=== PATIENT | female | born 1955 | race Caucasian/White ===

== ENCOUNTER → 2022-01-25 12:40 | Outpatient (CLI) | payer MEDICARE, SELFPAY ==
--- NOTE | 2022-01-25 12:47 | XR_ITS ---
FINAL REPORT TECHNIQUE: Chest PA & Lateral CLINICAL HISTORY: pneumonia FINDINGS: 2 views of the chest were performed. The heart size is normal. The mediastinum is within normal limits. There is dense left lower lobe consolidation. There is a large left pleural effusion. There is patchy airspace opacity at the right lung base. There is no pneumothorax. The bony thorax appears intact. IMPRESSION: Dense left lower lobe consolidation. Large left pleural effusion. Right lower lobe consolidation consistent with bibasilar pneumonia. Reviewed, Interpreted and Dictated by Ramses Gore MD Transcribed by Marquita Vargas Authenticated and [facility]
== END ==
PROVIDERS: PCP Family Medicine; Visit Provider Family Medicine
DX: J18.9 Pneumonia, unspecified organism (principal)
CPT/HCPCS: 71046

== ENCOUNTER 2022-01-27 11:05 | Inpatient (IN) | payer MEDICARE, OTHER, SELFPAY ==
[2022-01-27] VITALS (36 sets, daily range): BP systolic 74–165; BP diastolic 53–107; PULSE 62–88; RESP 20–31; TEMP 34.8–36; O2SAT 73–99; BMI 25.7; BMI 20.8
--- NOTE | 2022-01-27 11:03 | ECG_ITS ---
APPROVED REPORT Exam: Resting ECG HR:80 bpm ECG Measurements Heart Rate [address] 96 P 5 QRSd 89 QRS 52 QT 402 T 63 QTc 437 Conclusion SINUS RHYTHM WITH SHORT CT INTERVAL ST ELEVATION, of uncertain significance UNCONFIRMED REPORT Electronically signed by : Tang Chavira MD 01/29/2022 21:28:15
--- NOTE | 2022-01-27 11:08 | XR_ITS ---
PROCEDURE INFORMATION: Exam: XR Chest Exam date and time: 01/27/2022 11:39 AM Age: 67 years old Clinical indication: Shortness of breath; Additional info: Short of breath TECHNIQUE: Imaging protocol: Radiologic exam of the chest. Views: 1 view. COMPARISON: CR XR CHEST 2V 01/25/2022 12:49 PM FINDINGS: Lungs: Interval complete opacification of the left hemithorax, presumably due to an increase in large pleural effusion. There are increased moderate patchy opacities in the right lung as well; question pneumonia and/or edema. Emphysematous changes. Small/trace right pleural effusion. Postsurgical changes in the right mid/upper lung. Pleural spaces: No pneumothorax. Pleural effusions as above. Heart/Mediastinum: Stable appearance of the cardiac silhouette. Vasculature: Vascular calcifications. Bones/joints: Scoliosis and degenerative changes of the spine. ACDF. Old left rib fractures. IMPRESSION: Interval complete opacification of the left hemithorax, presumably due to an increase in large pleural effusion. There are increased moderate patchy opacities in the right lung as well; question pneumonia and/or edema. Otherwise, as above.
--- NOTE | 2022-01-27 11:09 | PC.NURSE ---
called RT for vbg order
--- NOTE | 2022-01-27 11:10 | HMH.EDGENADL ---
Discharge Plan Disposition Patient Disposition: Admitted As Inpatient Condition: Serious Clinical Impressions Clinical Impression: Pleural effusion, Pneumonia, Acute hypoxemic respiratory failure Discharge ED Provider: Helena Mccabe Adult HPI General Chief complaint: Shortness of Breath/Dyspnea Stated complaint: SOA Time Seen by Provider: 01/27/22 11:08 Mode of Arrival: EMS Source of Information: Patient and EMS History of Present Illness HPI narrative: 67-year-old female presenting to the emergency department with shortness of breath, wheezing. Symptoms started this morning. When she woke up felt generally unwell, difficulty breathing. called EMS for her. When EMS arrived her oxygen saturation was in the 80s on her home 3 L by nasal cannula. They administered a DuoNeb and placed on a nonrebreather. Transported to the emergency department. Patient suffers from COPD, uses inhalers and nebulizer. No recent antibiotics or steroids. She also has dementia. Suffers from chronic pain and takes pain medication. On arrival, she feels short of breath with chest congestion. She denies chest pain, abdominal pain, nausea, vomiting, fevers, chills, headache. Related Data Home Medications Medication Instructions Recorded Confirmed diltiazem HCl 300 mg 300 mg PO DAILY blood pressure 30 04/29/18 01/27/22 capsule,extended release 24 hr days #30 caps fluticasone furoate 200 1 inh inhalation DAILY soa 30 days 04/29/18 01/27/22 mcg-vilanterol 25 mcg/dose #60 ea inhalation powder lisinopril 20 mg tablet 40 mg PO DAILY Hypertension 30 04/29/18 01/27/22 days #120 tabs metformin 500 mg tablet 500 mg PO DAILY dm 30 days #60 tabs 04/29/18 01/27/22 montelukast 10 mg tablet 10 mg PO DAILY allergies 30 days 04/29/18 01/27/22 #30 tabs cholecalciferol (vitamin D3) 50 50 mcg PO DAILY Supplement 12/21/21 01/27/22 mcg (2,000 unit) capsule glipizide 2.5 mg tablet, extended 2.5 mg PO DAILY dm 12/21/21 01/27/22 release 24 hr albuterol sulfate 90 mcg/actuation 1 inh inhalation QID PRN soa 01/27/22 01/27/22 aerosol inhaler (ProAir HFA) aspirin 81 mg tablet,delayed 81 mg PO DAILY heart health 01/27/22 01/27/22 release donepezil 10 mg tablet 10 mg PO DAILY mood 01/27/22 01/27/22 estradiol 0.5 mg tablet 0.5 mg PO DAILY Supplement 01/27/22 01/27/22 ferrous sulfate 325 mg (65 mg 325 mg PO DAILY iron 01/27/22 01/27/22 iron) tablet (FeroSul) fluoxetine 40 mg capsule 40 mg PO DAILY mood 01/27/22 01/27/22 fluticasone fur. 200 mcg-umeclid 1 inh inhalation DAILY Nasal 01/27/22 01/27/22 62.5 mcg-vilant 25 mcg congestion inhalat.powder (Trelegy Ellipta) folic acid 1 mg tablet 1 mg PO DAILY Supplement 01/27/22 01/27/22 magnesium oxide 400 mg (241.3 mg 400 mg PO BID Supplement 01/27/22 01/27/22 magnesium) tablet memantine 5 mg tablet 5 mg PO BID memory 01/27/22 01/27/22 ondansetron HCl 4 mg tablet 4 mg PO TID Nausea & vomiting 01/27/22 01/27/22 potassium chloride 10 mEq 10 meq PO DAILY Supplement 01/27/22 01/27/22 tablet,extended release prednisone 1 mg tablet 5 mg PO DAILY lung 01/27/22 01/27/22 Previous Rx's Medication Instructions Recorded alprazolam 0.25 mg tablet 0.25 mg PO DAILY PRN anxiety #30 01/22/22 tabs Allergies Allergy/AdvReac Type Severity Reaction Status Date / Time CEPHALOSPORIN Allergy Unknown Uncoded 01/25/22 11:11 CODEINE Allergy Unknown I-ITCHING Uncoded 01/25/22 11:11 DOXYCYCLINE Allergy Unknown NA-NAUSEA/V Uncoded 01/25/22 11:11 OMITING FLU VACCINE Allergy Unknown Uncoded 01/25/22 11:11 From ABREVA Allergy Unknown S-BLISTERING Uncoded 01/25/22 11:11 WELTS From ADVAIR DISKUS 100/50 Allergy Unknown I-RASH Uncoded 01/25/22 11:11 From PNEUMOVAX 23 Allergy Unknown Uncoded 01/25/22 11:11 From TRAVATAN Allergy Unknown Uncoded 01/25/22 11:11 GABAPENTIN Allergy Unknown S-BLISTERING Uncoded 01/25/22 11:11 WELTS IBUPROFEN Allergy Unknown I-RASH Uncoded 01/25/22 11:11 PENICIL
[2022-01-27 11:15] LABS: Coronavirus 19, PCR Not Detected (NotDetected); Influenza A, PCR Not Detected (NotDetected); Influenza B, PCR Not Detected (NotDetected)
[2022-01-27 11:17] LABS: Basophils # 0.1 K/mm3 (0-0.2); Basophils % 0.2 % (0.1-2.0); Eosinophils # 0.2 K/mm3 (0.0-0.4); Eosinophils % 0.7 % (0.1-12.0); Hematocrit 39.1 % (37.0-47.0); Hemoglobin 11.7 g/dL (12.2-16.2); Lymphocytes # 2.1 K/mm3 (0.7-4.5); Mean Corpuscular HGB Conc 29.8 g/dL (31.8-35.4); Mean Corpuscular Hemoglobin 24.7 pg (27.0-31.2); Mean Corpuscular Volume 82.7 fl (81-99); Mean Platelet Volume 7.7 fl (7.4-10.4); Monocytes # 1.6 K/mm3 (0.1-1.0); Monocytes % 5.1 % (1.7-9.3); Neutrophils # 26.9 K/mm3 (1.8-7.8); Platelet Count 833 K/mm3 (142-424); Red Blood Count 4.73 M/mm3 (4.20-5.40); White Blood Count 30.9 K/mm3 (4.8-10.8)
[2022-01-27 11:21] LABS: MANUAL DIFFERENTIAL MANUAL DIFFERENTIAL (MANUAL DIFF)
[2022-01-27 11:24] LABS: Potassium 4.8 mmoL/L (3.5-5.1)
[2022-01-27 11:25] LABS: Alanine Aminotransferase 17 U/L (12-78); Albumin Level 3.5 g/dl (3.5-5.0); Alkaline Phosphatase 128 U/L (38-126); Anion Gap 13.8 mEq/L (5-15); Aspartate Amino Transferase 32 U/L (14-36); Blood Urea Nitrogen 30 mg/dl (7-17); Carbon Dioxide 32 mmol/L (22.0-30.0); Chloride 101 mmol/L (98-107); Estimated Glomerular Filt Rate 84 ml/min (>60); GFR (African American) 102 ML/MIN (>60); Globulin 3.5 g/dL (1.3-3.2); Glucose 253 mg/dl (74-100); Sodium 142 mmol/L (136-145)
--- NOTE | 2022-01-27 11:25 | PC.NURSE ---
respiratory notified of vbg
[2022-01-27 11:26] LABS: Bilirubin,Total 0.1 mg/dl (0.2-1.3)
[2022-01-27 11:31] LABS: Lymphocytes % 12 % (10-50); Monocytes % 6 % (2-9); Neutrophils % 82 % (42-76); Platelet Estimate Marked Decrease; RBC Morphology Normal; Total Cells Counted 100
[2022-01-27 11:32] LABS: Hypochromasia 1+
[2022-01-27 11:33] LABS: VBG Base Excess 1.4 mmol/L (-2.4-2.3); VBG HCO3 27.7 mmol/L (23-30); VBG Oxygen Saturation 98.3 % (50-70); VBG PH 7.31 mmol/L (7.31-7.41); VBG Total CO2 29.5 mmol/L (23-27)
[2022-01-27 11:35] LABS: VBG PCO2 56.6 mmol/L (35-51)
--- NOTE | 2022-01-27 11:36 | PC.NURSE ---
aware of VBG results
[2022-01-27 11:37] LABS: Troponin I 2.25 ng/ml (0.00-0.034)
--- NOTE | 2022-01-27 11:38 | PC.NURSE ---
MD aware of trop of 2.25
[2022-01-27 11:41] LABS: Microscopic, Urine URINE MICROSCOPIC (MICROSCOPIC)
[2022-01-27 11:45] LABS: Appearance,Urine CLEAR (Clear); Bilirubin,Urine Negative (Negative); Blood, Urine TRACE-I (Negative); Color,Urine YELLOW (Yellow); Glucose,Urine (UA) Negative (Negative); Ketones,Urine Negative (Negative); Lactic Acid 2.5 mmol/L (0.7-2.1); Leukocyte Esterase,Urine Negative (Negative); Nitrate,Urine Negative (Negative); PH,Urine 5.5 (5.0-8.5); Protein,Urine TRACE (Negative); Specific Gravity, Urine >= 1.030 (1.005-1.030); Urobilinogen,Urine 0.2 EU/dl (0.2)
--- NOTE | 2022-01-27 11:51 | PC.NURSE ---
bear hugger and warm blankets placed on pt
[2022-01-27 11:56] LABS: Bacteria,Urine Trace /lpf; RBC,Urine Occasional #/hpf (0-3)
--- NOTE | 2022-01-27 11:56 | EXP.PHA.CONS ---
Pharmacy Consult Date: 01/27/22 Time: 12:12 Referring provider: DR MELO Reason for Consult:: VANCOMYCIN DOSING CONSULT Allergies Allergy/AdvReac Type Severity Reaction Status Date / Time CEPHALOSPORIN Allergy Unknown Uncoded 01/25/22 11:11 CODEINE Allergy Unknown I-ITCHING Uncoded 01/25/22 11:11 DOXYCYCLINE Allergy Unknown NA-NAUSEA/V Uncoded 01/25/22 11:11 OMITING FLU VACCINE Allergy Unknown Uncoded 01/25/22 11:11 From ABREVA Allergy Unknown S-BLISTERING Uncoded 01/25/22 11:11 WELTS From ADVAIR DISKUS 100/50 Allergy Unknown I-RASH Uncoded 01/25/22 11:11 From PNEUMOVAX 23 Allergy Unknown Uncoded 01/25/22 11:11 From TRAVATAN Allergy Unknown Uncoded 01/25/22 11:11 GABAPENTIN Allergy Unknown S-BLISTERING Uncoded 01/25/22 11:11 WELTS IBUPROFEN Allergy Unknown I-RASH Uncoded 01/25/22 11:11 PENICILLIN Allergy Unknown S-DIFF. Uncoded 01/25/22 11:11 BREATHING Home Medications Medication Instructions Recorded Confirmed Type diltiazem HCl 300 mg PO 30 days #30 caps 04/29/18 01/25/22 History capsule,extended release 24 hr fluticasone furoate 200 inhalation 30 days #60 ea 04/29/18 01/25/22 History mcg-vilanterol 25 mcg/dose inhalation powder hydrochlorothiazide 12.5 mg tablet PO 90 days #90 tabs 04/29/18 01/25/22 History lisinopril 20 mg tablet PO 30 days #120 tabs 04/29/18 01/25/22 History metformin 500 mg tablet PO 30 days #60 tabs 04/29/18 01/25/22 History montelukast 10 mg tablet PO 30 days #30 tabs 04/29/18 01/25/22 History oxycodone 15 mg tablet PO 30 days #120 tabs 04/29/18 01/25/22 History pravastatin 20 mg tablet PO 90 days #90 tabs 04/29/18 01/25/22 History acetaminophen 500 mg capsule 500 mg PO DAILY PRN 12/21/21 01/25/22 History cholecalciferol (vitamin D3) 50 50 mcg PO DAILY 12/21/21 01/25/22 History mcg (2,000 unit) capsule donepezil 10 mg tablet 10 mg PO DAILY #90 tabs 12/21/21 01/25/22 Rx estradiol 0.5 mg tablet 0.5 mg PO DAILY 30 days #30 tabs 12/21/21 01/25/22 Rx glipizide 2.5 mg tablet, extended 2.5 mg PO DAILY 12/21/21 01/25/22 History release 24 hr magnesium oxide 400 mg (241.3 mg 400 mg PO BID #180 tabs 12/21/21 01/25/22 Rx magnesium) tablet memantine 5 mg tablet 5 mg PO BID #180 tabs 12/21/21 01/25/22 Rx ondansetron HCl 4 mg tablet 4 mg PO TID #90 tabs 12/21/21 01/25/22 Rx oxycodone-acetaminophen 5 mg-325 1 tab PO DAILY PRN 12/21/21 01/25/22 History mg tablet potassium chloride 10 mEq 10 meq PO DAILY #90 tabs 12/21/21 01/25/22 Rx tablet,extended release alprazolam 0.25 mg tablet 0.25 mg PO DAILY PRN anxiety #30 01/22/22 01/25/22 Rx tabs fluoxetine 40 mg capsule 40 mg PO DAILY 30 days #30 caps 01/22/22 01/25/22 Rx oxycodone-acetaminophen 7.5 mg-325 1 tab PO Q6H PRN pain #120 tabs 01/22/22 01/25/22 Rx mg tablet (Percocet) levofloxacin 500 mg tablet 500 mg PO DAILY 10 days #10 tabs 01/25/22 01/25/22 Rx prednisone 1 mg tablet 5 mg PO DAILY #90 tabs 01/26/22 Rx New Prescriptions to Start Prescriptions: Height: 1.6 m Weight: 65.771 kg Laboratory Results:: Laboratory Results - last 24 hr 01/27/22 11:05: Urine Color Yellow, Urine Appearance Clear, Urine pH 5.5, Ur Specific Gust[place] >= 1.030, Urine Protein Trace, Urine Glucose (UA) Negative, Urine Ketones Negative, Urine Blood Trace-i, Urine Nitrate Negative, Urine Bilirubin Negative, Urine Urobilinogen 0.2, Ur Leukocyte Esterase Negative 01/27/22 11:05: WBC 30.9 H*, RBC 4.73, Hgb 11.7 L, Hct 39.1, MCV 82.7, MCH 24.7 L, MCHC 29.8 L, RDW 16.0, Plt Count 833 H, MPV 7.7, Neut % (Auto) 87.0 H, Lymph % (Auto) 7.0 L, [place] % (Auto) 5.1, Eos % (Auto) 0.7, Baso % (Auto) 0.2, Neut # (Auto) 26.9 H, Lymph # (Auto) 2.1, [place] # (Auto) 1.6 H, Eos # (Auto) 0.2, Baso # (Auto) 0.1, Total Counted 100, Neutrophils % (Manual) 82 H, Lymphocytes % (Manual) 12, Monocytes % (Manual) 6, Platelet Estimate Marked decrease, RBC Morphology Normal, Hypochromasia 1+ 01/27/22 11:05: Sodium 142, Potassium 4.8, Chloride 101, Carbon Dioxide 32 H,
[2022-01-27 11:57] LABS: Amphetamine/Metha Screen,Urine Negative ng/ml (<1000)
--- NOTE | 2022-01-27 11:57 | PC.NURSE ---
spoke with pharmacy who states they will bring down ordered meds
[2022-01-27 11:58] LABS: Barbiturates Screen,Urine Negative ng/ml (<200); Benzodiazepines Screen,Urine Positive ng/ml (<200)
[2022-01-27 11:59] LABS: Cannabinoid Screen,Urine Negative ng/ml (<50)
[2022-01-27 12:00] LABS: Cocaine Screen,Urine Negative ng/ml (<300); Methadone Screen,Urine Negative ng/ml (<300)
[2022-01-27 12:01] LABS: Phencyclidine Screen,Urine Negative ng/ml (<25)
[2022-01-27 12:02] LABS: Opiate Screen,Urine Positive ng/ml (<300)
--- NOTE | 2022-01-27 12:11 | PC.NURSE ---
CALLED [facility] FOR REQUEST FOR TRANSFER.
--- NOTE | 2022-01-27 12:21 | PC.NURSE ---
FLORENTINO Stoddard ACCEPTED PT @ [facility] NO BEDS AT THIS TIME
--- NOTE | 2022-01-27 12:55 | PC.NURSE ---
spoke with pharmacy about medication orders/allergies. orders changed per MD
--- NOTE | 2022-01-27 12:59 | PC.NURSE ---
RESPIRATORY CARE NOTE: VAPOTHERM PLACED ON PT. 80%; 25 LPM. WILL CONTINUE TO MONITOR
--- NOTE | 2022-01-27 15:00 | PC.NURSE ---
thorcentesis started at this time by , assisted with procedure. Pt tolerated well. VSS procedure completed at 1520
--- NOTE | 2022-01-27 15:17 | XR_ITS ---
PROCEDURE INFORMATION: Exam: XR Chest Exam date and time: 01/27/2022 3:33 PM Age: 67 years old Clinical indication: Shortness of breath; Additional info: Post-procedure (thora) TECHNIQUE: Imaging protocol: Radiologic exam of the chest. Views: 1 view. Portable AP exam 3:35 p.m. COMPARISON: CR XR CHEST PORTABLE 01/27/2022 11:39 AM FINDINGS: Tubes, catheters and devices: Overlying citrix administrator electrodes and oxygen tubing. Lungs: Patchy airspace disease again noted in the mid and lower right lung, and likely scattered through the left lung is well, though not as well seen on the left due to overlying pleural fluid. Correlate for edema or pneumonia. Pleural spaces: Presumed post left thoracentesis with decreased left pleural effusion compared with the prior exam from 03/14 9:00 a.m.. Small residual layering left pleural effusion. No pneumothorax. Heart/Mediastinum: Cardiomegaly. Enlarged left atrial shadow. Bones/joints: Cervical spine fusion hardware. Thoracic spine degenerative changes, multilevel disc narrowing and spondylosis. IMPRESSION: 1. Decreased left pleural effusion post thoracentesis, though there is mild residual layering fluid. No pneumothorax. 2. Patchy bilateral pulmonary airspace disease, correlate for edema or pneumonia. 3. Cardiomegaly. 4. Additional nonemergency and chronic findings as above.
--- NOTE | 2022-01-27 15:22 | PC.NURSE ---
1000cc of fluids from left lung drained per MD, fluid samples collected and sent to the lab
--- NOTE | 2022-01-27 15:33 | PC.NURSE ---
pt taken off vapotherm, oxygen with 4 L nc sats at 95, pt sleeping at this time. Respiratory notified
--- NOTE | 2022-01-27 15:34 | PC.NURSE ---
notified of pt improvement with oxygen from vapotherm to 4 L NC
[2022-01-27 15:35] LABS: Reflex Lactic Add Lactic Reflex
--- NOTE | 2022-01-27 15:35 | PC.NURSE ---
troponin 2.05, aware
[2022-01-27 15:36] LABS: Troponin I 2.05 ng/ml (0.00-0.034)
--- NOTE | 2022-01-27 16:38 | PC.NURSE ---
JESSICA CALLED TO CHECK ON STATUS OF PT. NOTIFIED THEM PT AND FAMILY HAD DECIDED TO STAY HERE INSTEAD. SHE STATED SHE WOULD TAKE HER OFF THE LIST. UPDATED HER ON RECEIVE VITAL SIGNS ON PT PER HER REQUEST.
--- NOTE | 2022-01-27 17:08 | EXP.HP ---
History of Present Illness *Admission Date: 01/27/22 *Reason for visit:: shortness of breath *History of present illness: Patient is a 67-year-old woman with past medical history of COPD, hypertension, type 2 diabetes, mild dementia, and recent diagnosis of pneumonia who came to the ER for shortness of breath. Patient reports she has been feeling very fatigued and short of breath for the last 2 days. 2 days ago she went to her primary care doctor and she was diagnosed with pneumonia and given a shot of Rocephin. She is continue to feel more short of breath and therefore came to the ER for further evaluation. Her reports that a few months ago she had a CT scan that showed some nodules. She was supposed to have some kind of work-up on these, however they were concerned about her undergoing anesthesia and elected not to have this procedure, perhaps a bronchoscopy. She stated that if the spots turned out to be cancer then she would elect not to have treatment. Her reports that she has an extensive smoking history. Additionally she has a history of an unusual pneumonia that were required a partial lung resection in the past. Patient denies any fever or chills over the last 2 days, she does report fatigue and shortness of breath. [facility] Medical History COPD (chronic obstructive pulmonary disease) Hyperlipidemia Social History Smoking Status: Current every day smoker tobacco type: cigarettes packs per day: 1 alcohol intake: never substance use type: denies use current occupational status: unemployed Travel in the last 8 weeks: None Review of Systems Constitutional Constitutional: Denies chills, Reports fatigue, Denies fever(s), Denies headache(s), Reports poor appetite, Reports lethargy and Reports malaise Eyes Eyes: Denies change in vision and Denies loss of vision ENT Ears, Nose, Mouth, and Throat: Denies change in voice, Denies dizziness, Denies dysphagia and Denies headache(s) *Cardiovascular Cardiovascular: Denies chest pain, Reports dyspnea, Reports dyspnea on exertion, Denies edema and Denies leg edema *Respiratory Respiratory: Reports chest congestion, Reports cough, Reports dyspnea, Reports dyspnea on exertion, Denies hemoptysis and Reports wheezing *Gastrointestinal Gastrointestinal: Denies abdominal pain, Denies change in bowel habits, Denies constipation, Denies dysphagia, Denies nausea and Denies vomiting *Genitourinary Genitourinary: Denies dysuria *Musculoskeletal Musculoskeletal: Reports abnormal gait, Reports atrophy, Reports limited range of motion, Reports muscle weakness (diffuse, not focal ) and Denies tingling Integumentary/Breasts Skin/Breast: Denies bleeding lesions *Neurologic Neurologic: Reports abnormal gait, Denies abnormal speech, Reports confusion, Denies dizziness, Denies localized weakness, Denies headache(s), Denies loss of vision and Denies tingling Psychiatric Psychiatric: Reports confusion Endocrine Endocrine: Reports fatigue Allergic/Immunologic Allergic/Immunologic: Reports wheezing Meds Home Medications and Allergies Home Medications Medication Instructions Recorded Confirmed Type diltiazem HCl 300 mg 300 mg PO DAILY blood pressure 30 04/29/18 01/27/22 History capsule,extended release 24 hr days #30 caps fluticasone furoate 200 1 inh inhalation DAILY soa 30 days 04/29/18 01/27/22 History mcg-vilanterol 25 mcg/dose #60 ea inhalation powder lisinopril 20 mg tablet 40 mg PO DAILY Hypertension 30 04/29/18 01/27/22 History days #120 tabs metformin 500 mg tablet 500 mg PO DAILY dm 30 days #60 tabs 04/29/18 01/27/22 History montelukast 10 mg tablet 10 mg PO DAILY allergies 30 days 04/29/18 01/27/22 History #30 tabs cholecalciferol (vitamin D3) 50 50 mcg PO DAILY Supplement 12/21/21 01/27/22 History mcg (2,000 unit) capsule glipizide 2.5 mg tablet, ext
[2022-01-27 17:15] LABS: Source, Body Fld. Thoracentesis Fluid
--- NOTE | 2022-01-27 17:15 | PC.NURSE ---
LAB CALLED WITH [facility] 4.0. NOTIFIED.
[2022-01-27 17:16] LABS: Appearance,Body Fld. Slightly hazy; RBC,Body Fluid 14 cells/uL (< 10 X 10^3); TNC,Body Fluid 1365 cells/uL (< 1000); Volume,Body Fld. 21 mL
--- NOTE | 2022-01-27 17:20 | PC.NURSE ---
warm blankets given to pt
[2022-01-27 17:44] LABS: NT Pro Brain Natriuretic Pep. 1960 pg/mL (0-125)
[2022-01-27 17:45] LABS: Troponin I 1.83 ng/ml (0.00-0.034)
--- NOTE | 2022-01-27 17:45 | PC.NURSE ---
Trop 1.83. aware
[2022-01-27 17:57] LABS: Hemoglobin A1C 5.1 % (4.0-6.0)
--- NOTE | 2022-01-27 18:00 | PC.NURSE ---
report called to Cecile LOUISE
[2022-01-27 18:23] LABS: Mononuclear WBCs,Body Fluid 99 %; Polynuclear WBC,Body Fluid 1 %
[2022-01-27 18:37] LABS: Reflex Lactic (2 hrs) Add Lactic Reflex
--- NOTE | 2022-01-27 18:44 | PC.NURSE ---
patient arrived to floor by stretcher from ED
--- NOTE | 2022-01-27 18:50 | PC.NURSE ---
pt arrived to the floor via stretcher. Pt noted to be increasingly short of air and lethargic. She is disoriented and unable to answer questions. Her oxygen saturation is 72% on 5lnc. pt placed on nonrebreather. i contacted respiratory and Hospitalist. saturation 81%. left lung completely diminished. R scattered rhonchi and crackles through out. Pt will be transferred to the ICU per hospitalist who is @ bedside.
--- NOTE | 2022-01-27 19:05 | XR_ITS ---
PROCEDURE INFORMATION: Exam: XR Chest Exam date and time: 01/27/2022 7:09 PM Age: 67 years old Clinical indication: Shortness of breath TECHNIQUE: Imaging protocol: Radiologic exam of the chest. Views: 1 view. Portable AP supine exam 7:10 p.m. COMPARISON: CR XR CHEST PORTABLE 01/27/2022 3:33 PM FINDINGS: Tubes, catheters and devices: Overlying sequins spooler electrodes and oxygen tubing. Lungs: Worsened hazy left chest opacities, which are probably due to a combination of increasing perihilar edema or pneumonia, as well as increased density from overlying pleural fluid. Worsening of left pulmonary infiltrates causes near complete obscuration of the left heart border on this follow-up exam. Patchy central and lower airspace opacities in the right lung appear overall stable in the interval. Pleural spaces: Increased layering pleural fluid/reaccumulation of fluid in the left chest compared with the prior exam from 07/12 3:00 p.m.. No pneumothorax. Heart/Mediastinum: Cardiomegaly, the heart border is less distinct on this follow-up exam due to worsening adjacent pulmonary airspace disease. Vasculature: Calcified plaques in the aortic arch. Bones/joints: Chronic spinal degenerative changes and cervical fusion hardware. Old left lower rib fracture deformities. IMPRESSION: 1. Bilateral pulmonary airspace disease, which appears significantly worsened on the left compared with the earlier exam from 3:33 p.m., this could be increasing edema or pneumonia. 2. A moderate left pleural effusion, which has enlarged/reaccumulated since the earlier exam. 3. No pneumothorax. 4. Additional nonemergency and chronic findings as above.
[2022-01-27 19:29] LABS: ABG HCO3 25.9 mmhg (22.0-26.0); ABG Oxygen Saturation 90 % (90-100); ABG PH 7.21 mmol/L (7.35-7.45); ABG PO2 68.7 mmhg (80-100); ABG TCO2 27.9 mmhg (23-27)
[2022-01-27 19:37] LABS: Allen's Test y; Oxygen 100 %; Source rr; Vent Rate 20
[2022-01-27 20:10] LABS: Lactic Acid Follow up (RFLX 2) 2.9 mmol/L (0.7-2.1)
[2022-01-27 23:09] LABS: POC Glucose,Bedside 228 (70-110)
[2022-01-27 23:09] LABS: POC Glucose,Bedside 190 (70-110)
--- NOTE | 2022-01-27 23:59 | XR_ITS ---
PROCEDURE INFORMATION: Exam: XR Chest Exam date and time: 01/27/2022 11:36 PM Age: 67 years old Clinical indication: Shortness of breath TECHNIQUE: Imaging protocol: Radiologic exam of the chest. Views: 1 view. COMPARISON: CR XR CHEST PORTABLE 01/27/2022 7:09 PM FINDINGS: Lungs: Patchy left-sided airspace disease. Pleural spaces: Large left-sided pleural effusion. Patchy right-sided disease. Overall stable unchanged from prior study. Heart/Mediastinum: Unremarkable. No cardiomegaly. Bones/joints: Unremarkable. IMPRESSION: Stable exam. Large left-sided effusion and patchy bilateral airspace disease.
[2022-01-28] VITALS (31 sets, daily range): BP systolic 87–151; BP diastolic 40–80; PULSE 70–106; RESP 18–33; TEMP 36.5–38.1; O2SAT 90–100
[2022-01-28 00:32] LABS: ABG Base Excess 1.5 mmol/L (-2.4-2.3); ABG HCO3 28.7 mmhg (22.0-26.0); ABG Oxygen Saturation 99 % (90-100); ABG PH 7.25 mmol/L (7.35-7.45); ABG PO2 158.1 mmhg (80-100); ABG TCO2 30.7 mmhg (23-27)
[2022-01-28 00:33] LABS: Allen's Test Y; Oxygen 100 %; Pressure Support 8; Source Right Radial; Vent Rate 20
[2022-01-28 00:34] LABS: ABG PCO2 66.6 mmhg (35.0-45.0)
[2022-01-28 05:41] LABS: Basophils # 0.1 K/mm3 (0-0.2); Basophils % 0.3 % (0.1-2.0); Eosinophils # 0.3 K/mm3 (0.0-0.4); Hematocrit 41.8 % (37.0-47.0); Hemoglobin 12.1 g/dL (12.2-16.2); Lymphocytes # 0.6 K/mm3 (0.7-4.5); Mean Corpuscular HGB Conc 28.9 g/dL (31.8-35.4); Mean Corpuscular Hemoglobin 24.7 pg (27.0-31.2); Mean Corpuscular Volume 85.5 fl (81-99); Monocytes # 0.8 K/mm3 (0.1-1.0); Monocytes % 2.7 % (1.7-9.3); Red Blood Count 4.89 M/mm3 (4.20-5.40); Red Cell Distribution Width 15.8 % (11.5-17.5); White Blood Count 28.7 K/mm3 (4.8-10.8)
[2022-01-28 05:43] LABS: Platelet Count 706 K/mm3 (142-424)
[2022-01-28 05:45] LABS: MANUAL DIFFERENTIAL MANUAL DIFFERENTIAL (MANUAL DIFF)
[2022-01-28 05:52] LABS: Sodium 145 mmol/L (136-145)
[2022-01-28 05:53] LABS: Chloride 102 mmol/L (98-107)
[2022-01-28 05:54] LABS: Alanine Aminotransferase 17 U/L (12-78); Aspartate Amino Transferase 36 U/L (14-36); Blood Urea Nitrogen 38 mg/dl (7-17); Creatinine Clearance Estimated 49 mL/min (50-200); Estimated Glomerular Filt Rate 63 ml/min (>60); GFR (African American) 76 ML/MIN (>60)
[2022-01-28 05:55] LABS: Albumin Level 3.6 g/dl (3.5-5.0); Alkaline Phosphatase 105 U/L (38-126); Carbon Dioxide 36 mmol/L (22.0-30.0); Magnesium 2.5 mg/dl (1.6-2.3); Phosphorous 7.1 mg/dl (2.5-4.5)
[2022-01-28 05:56] LABS: Calcium 8.9 mg/dl (8.4-10.2); Globulin 3.6 g/dL (1.3-3.2); Glucose 158 mg/dl (74-100); Lactic Acid 1.8 mmol/L (0.7-2.1); Total Protein,Serum 7.2 g/dl (6.3-8.2)
[2022-01-28 05:58] LABS: Bilirubin,Total < 0.1 mg/dl (0.2-1.3)
[2022-01-28 06:00] LABS: POC Glucose,Bedside 160 (70-110)
[2022-01-28 06:07] LABS: Troponin I 1.91 ng/ml (0.00-0.034)
[2022-01-28 06:11] LABS: Hypochromasia 2+; Lymphocytes % 8 % (10-50); Monocytes % 1 % (2-9); Neutrophils % 87 % (42-76); Platelet Estimate Marked Increase; Total Cells Counted 100
[2022-01-28 06:12] LABS: Hypersegmented Neutrophils 1+
[2022-01-28 06:25] LABS: Chloride, Arterial 104 mmol/L (98-107); Lactate Arterial 1.6 mmol/L (0.4-2.0); Potassium, Arterial 5.8 mmoL/L (3.5-5.1); Sodium Arterial 144 mmol/L (137-145)
[2022-01-28 06:28] LABS: ABG Base Excess 2.3 mmol/L (-2.4-2.3); ABG HCO3 30.8 mmhg (22.0-26.0); ABG Oxygen Saturation 95 % (90-100); ABG PO2 84.9 mmhg (80-100); ABG TCO2 33.4 mmhg (23-27); Allen's Test Patient Unable; Oxygen 80% %; PEEP 16/8; Source Right Radial; Vent Rate 20
[2022-01-28 06:29] LABS: ABG PCO2 85.1 mmhg (35.0-45.0); ABG PH 7.18 mmol/L (7.35-7.45)
[2022-01-28 06:29] LABS: Calcium, Arterial 5.1 mg/dL (8.5-10.1)
--- NOTE | 2022-01-28 06:40 | PC.NURSE ---
BIPAP SETTINGS CHANGED TO 20/10, RR 24, 70% PER FRANCA MATTHEWS
--- NOTE | 2022-01-28 08:13 | XR_ITS ---
PROCEDURE INFORMATION: Exam: XR Chest Exam date and time: 01/28/2022 8:20 AM Age: 67 years old Clinical indication: Shortness of breath TECHNIQUE: Imaging protocol: Radiologic exam of the chest. Views: 1 view. COMPARISON: CR XR CHEST PORTABLE 01/27/2022 11:36 PM FINDINGS: Lungs: Patchy airspace opacities bilaterally, with relative sparing of the right upper lobe. Pleural spaces: Large left pleural effusion, may be slightly increased since previous study, although difference could be due to patient position. Heart/Mediastinum: Unremarkable. No cardiomegaly. Bones/joints: Unremarkable. IMPRESSION: 1. Large left pleural effusion, may be slightly increased since previous study, although difference could be due to patient position. 2. Patchy airspace opacities bilaterally, with relative sparing of the right upper lobe.
[2022-01-28 08:47] LABS: ABG Base Excess -1.1 mmol/L (-2.4-2.3); ABG HCO3 28.4 mmhg (22.0-26.0); ABG Oxygen Saturation 93 % (90-100); ABG PO2 77.7 mmhg (80-100); ABG TCO2 31.2 mmhg (23-27)
[2022-01-28 08:50] LABS: ABG PH 7.11 mmol/L (7.35-7.45); Allen's Test Patient Unable; Oxygen 70% %; PEEP 20/10; Source Right Radial; Vent Rate 24
[2022-01-28 08:51] LABS: Lactate Arterial 1.7 mmol/L (0.4-2.0)
[2022-01-28 08:51] LABS: ABG PCO2 91.1 mmhg (35.0-45.0)
--- NOTE | 2022-01-28 09:11 | CT_ITS ---
PROCEDURE INFORMATION: Exam: CT Head Without Contrast Exam date and time: 01/28/2022 12:29 PM Clinical indication: Altered mental status/memory loss; Additional info: AMS with anisocoria TECHNIQUE: Imaging protocol: Computed tomography of the head without contrast. COMPARISON: No relevant prior studies available. FINDINGS: Brain: The brain demonstrates diffuse volume loss. There is white matter hypodensity most consistent with chronic small vessel ischemic change. A small calcification in the right head of the caudate appears dystrophic. Cerebral ventricles: The ventricles and CSF spaces are proportionately enlarged. Paranasal sinuses: Visualized sinuses are unremarkable. No fluid levels. Mastoid air cells: Visualized mastoid air cells are well aerated. Bones/joints: No acute fracture. Soft tissues: Unremarkable. IMPRESSION: No acute intracranial abnormality.
--- NOTE | 2022-01-28 09:12 | CT_ITS ---
PROCEDURE INFORMATION: Exam: CT Chest With Contrast; Diagnostic Exam date and time: 01/28/2022 12:33 PM Age: 67 years old Clinical indication: Shortness of breath; Additional info: Pleural effusion, respiratory failure TECHNIQUE: Imaging protocol: Diagnostic computed tomography of the chest with contrast. Radiation optimization: All CT scans at this facility use at least one of these dose optimization techniques: automated exposure control; mA and/or kV adjustment per patient size (includes targeted exams where dose is matched to clinical indication); or iterative reconstruction. Contrast material: ISOVUE; Contrast volume: 70 ml; Contrast route: IV; COMPARISON: CR XR CHEST PORTABLE 01/28/2022 11:10 AM FINDINGS: Tubes, catheters and devices: Left-sided chest tube directed superior medially. Endotracheal, nasogastric tubes in satisfactory position. Left central line terminates in the proximal brachiocephalic/SVC junction. Lungs: Patchy airspace consolidation bilaterally, most confluent in the lingula. Associated interstitial thickening noted bilaterally. Ill-defined nodularity with bronchial wall thickening in the right lower lobe. Pleural spaces: Small left pneumothorax, less than 5%. Trace left pleural effusion. Heart: Moderate pericardial effusion. Lymph nodes: Bulky mediastinal and right hilar lymphadenopathy. Right paratracheal lymph node measures 2.2 x 2.5 cm. Vasculature: Unremarkable. No aortic aneurysm. Liver: Ill-defined low-attenuation nodules partially visualized in the liver, largest measuring 3.8 x 3.5 cm, highly concerning for metastatic disease. Clinical correlation necessary. Bones/joints: Remote deformities in the left ribs. Remote compression deformity L1 vertebral body. Soft tissues: Unremarkable. IMPRESSION: 1. Left-sided chest tube directed superior medially. 2. Small left pneumothorax, less than 5%. 3. Trace left pleural effusion. 4. Patchy airspace consolidation bilaterally, most confluent in the lingula. Associated interstitial thickening noted bilaterally. Follow-up to resolution necessary to exclude underlying mass. 5. Ill-defined nodularity with bronchial wall thickening in the right lower lobe. 6. Bulky mediastinal and right hilar lymphadenopathy. Right paratracheal lymph node measures 2.2 x 2.5 cm. 7. Ill-defined low-attenuation nodules partially visualized in the liver, largest measuring 3.8 x 3.5 cm, highly concerning for metastatic disease. Clinical correlation necessary.
--- NOTE | 2022-01-28 09:26 | EXP.PN ---
Subjective *Date: 01/28/22 *Time: 09:26 Interval history: Pt is critically ill today. Upon arrival to the floor last night around 7pm pt's O2 sats dropped to the low 80's/high 70's and pt was placed on Bipap with good response in terms of O2 sats. She was agitated overnight but became increasingly less responsive overnight. This morning pt was difficult to arouse, needing sternal rub and yelling her name to illicit eye opening and facial expression. She did not squeeze my hand or move her toes when asked to. I was unable to appreciate any vocalization although she was wearing a bipap with her mouth gapping open. Additional details below. Exam Data for Last 24 hours Vital signs and Labs for Last 24 Hours: Temp Pulse Resp BP Pulse Ox FiO2 99.0 F 88 33 H 95/44 L 91 L 70 01/28/22 08:00 01/28/22 08:00 01/28/22 08:00 01/28/22 08:00 01/28/22 08:00 01/28/22 08:00 Laboratory Results - last 24 hr 01/27/22 11:05: Urine Color Yellow, Urine Appearance Clear, Urine pH 5.5, Ur Specific [place] >= 1.030, Urine Protein Trace, Urine Glucose (UA) Negative, Urine Ketones Negative, Urine Blood Trace-i, Urine Nitrate Negative, Urine Bilirubin Negative, Urine Urobilinogen 0.2, Ur Leukocyte Esterase Negative, Urine RBC Occasional, Urine WBC None, Ur Squamous Epith Cells 3-5, Urine Bacteria Trace 01/27/22 11:05: WBC 30.9 H*, RBC 4.73, Hgb 11.7 L, Hct 39.1, MCV 82.7, MCH 24.7 L, MCHC 29.8 L, RDW 16.0, Plt Count 833 H, MPV 7.7, Neut % (Auto) 87.0 H, Lymph % (Auto) 7.0 L, [place] % (Auto) 5.1, Eos % (Auto) 0.7, Baso % (Auto) 0.2, Neut # (Auto) 26.9 H, Lymph # (Auto) 2.1, [place] # (Auto) 1.6 H, Eos # (Auto) 0.2, Baso # (Auto) 0.1, Total Counted 100, Neutrophils % (Manual) 82 H, Lymphocytes % (Manual) 12, Monocytes % (Manual) 6, Platelet Estimate Marked decrease, RBC Morphology Normal, Hypochromasia 1+ 01/27/22 11:05: Sodium 142, Potassium 4.8, Chloride 101, Carbon Dioxide 32 H, Anion Gap 13.8, BUN 30 H, Creatinine 0.70, Estimated GFR 84, Est GFR ( Amer) 102, Glucose 253 H, Calcium 9.0, Total Bilirubin 0.1 L, AST 32, ALT 17, Alkaline Phosphatase 128 H, Troponin I 2.25 H, Total Protein 7.0, Albumin 3.5, Globulin 3.5 H, Albumin/Globulin Ratio 1.0 L 01/27/22 11:05: SARS-CoV-2 (PCR) Not detected, Influenza A Untype (PCR) Not detected, Influenza Type B (PCR) Not detected 01/27/22 11:05: Urine Opiates Screen Positive H, Urine Methadone Screen Negative, Ur Barbituates Screen Negative, Ur Phencyclidine Scrn Negative, Ur Amphetamines Screen Negative, U Benzodiazepines Scrn Positive H, Urine Cocaine Screen Negative, U Marijuana (THC) Screen Negative 01/27/22 11:05: Lactate 2.5 H 01/27/22 11:05: Hemoglobin A1c 5.1 01/27/22 11:08: VBG pH 7.31, VBG pCO2 56.6 H, VBG pO2 120.0 H, VBG HCO3 27.7, VBG Total CO2 29.5 H, VBG O2 Saturation 98.3 H, VBG Base Excess 1.4 01/27/22 14:40: Troponin I 2.05 H 01/27/22 15:20: Fluid Source Thoracentesis fluid, Fluid Volume 21, Fluid Appearance Slightly hazy, Fluid RBC (Auto) 14, Fld Tot Nucleated Cell 1365, Fld Polynuclear WBCs % 1, Fld Mononuclear WBCs % 99 01/27/22 16:00: Troponin I 1.83 H 01/27/22 16:00: NT-Pro-B Natriuret Pep 1960 H 01/27/22 16:00: Lactate 4.0 H 01/27/22 19:05: Specimen Source rr, O2 % 100, ABG pH 7.21 L*, ABG pCO2 66.0 H, ABG pO2 68.7 L, ABG HCO3 25.9, ABG Total CO2 27.9 H, ABG O2 Saturation 90, ABG Base Excess -2.0, Gigi Test y, Vent Rate 20 01/27/22 19:08: POC Glucose 228 H 01/27/22 19:40: Lactate 2.9 H 01/27/22 22:08: POC Glucose 190 H 01/28/22 00:00: Specimen Source Right radial, O2 % 100, ABG pH 7.25 L, ABG pCO2 66.6 H, ABG pO2 158.1 H, ABG HCO3 28.7 H, ABG Total CO2 30.7 H, ABG O2 Saturation 99, ABG Base Excess 1.5, Gigi Test Y, Vent Rate 20 01/28/22 05:35: Sodium 145, Potassium 6.0 H D, Chloride 102, Carbon Dioxide 36 H, Anion Gap 13.0, BUN 38 H D, Creatinine 0.90 D, Estimated Creat Clear 49, Estimated GFR 63, Est GFR ( Amer) 76 D, Glucose 158 H D, Calcium 8.9, Phosphorus 7.1 H, Magnesium 2.5 H, Total Bilirubin < 0.1 L,
--- NOTE | 2022-01-28 09:37 | HMH.PROCNOTE ---
[facility] Procedure Note Date: 01/28/22 Time: 09:25 Procedure Note:: Patient was intubated emergently due to hypoxic and hypercapneic respiratory failure. She was intubated with an S3 hyperangulated blade with video-assisted Glidescope. She was intubated with a 7.5 ETT at 22cm at the lips. RSI was used with etomidate and succinylcholine. One attempt was made. Grade I view. She was preoxygenated with BiPAP. She tolerated the procedure well with no immediate complications.
--- NOTE | 2022-01-28 09:38 | XR_ITS ---
PROCEDURE INFORMATION: Exam: XR Chest Exam date and time: 01/28/2022 9:46 AM Age: 67 years old Clinical indication: Device placement; Other: Og; Additional info: Confirm ett placement / confirm og tube placement-- TECHNIQUE: Imaging protocol: Radiologic exam of the chest. Views: 1 view. COMPARISON: CR XR CHEST PORTABLE 01/28/2022 8:20 AM FINDINGS: Tubes, catheters and devices: Endotracheal tube 3.5 cm above the felecia. Nasogastric tube into the stomach, tip not visualized. Lungs: Patchy airspace opacities bilaterally. Pleural spaces: Stable large left pleural effusion. Heart/Mediastinum: Cardiac silhouette obscured. Bones/joints: Unremarkable. IMPRESSION: 1. Endotracheal tube 3.5 cm above the felecia. Nasogastric tube into the stomach, tip not visualized. 2. Stable large left pleural effusion. 3. Patchy airspace opacities bilaterally.
--- NOTE | 2022-01-28 10:01 | HMH.PHAINT1 ---
Pharmacy Intervention Comments: home medication list verified using list from [facility]
--- NOTE | 2022-01-28 10:24 | HMH.ITSTN ---
called to go get patient for scan she is intubated at this time and was having a chest tube placed-- need to hold until respiratory and nurse can come with patient to scan. I advised to call when ready also will be scanned on the downstairs ER CT scanner
--- NOTE | 2022-01-28 11:05 | XR_ITS ---
PROCEDURE INFORMATION: Exam: XR Chest Exam date and time: 01/28/2022 11:10 AM Age: 67 years old Clinical indication: Device placement; Chest tube; Additional info: Chest tube and central line placement TECHNIQUE: Imaging protocol: Radiologic exam of the chest. Views: 1 view. COMPARISON: CR XR CHEST PORTABLE 01/28/2022 9:46 AM FINDINGS: Tubes, catheters and devices: Interval placement of left-sided chest tube, directed superior medially with side hole projecting over the posterior left 7th rib. Interval placement of left-sided central catheter terminating in the proximal SVC. Endotracheal and nasogastric tubes stable. Lungs: Stable mild patchy airspace opacities bilaterally, with relative sparing of the right upper lung zone. Surgical changes in the mid right lung evident. Pleural spaces: Significantly decreased left pleural effusion, with lung aeration now evident at the left lung base. Small pleural effusion remains. Heart/Mediastinum: Unremarkable. No cardiomegaly. Bones/joints: Unremarkable. IMPRESSION: 1. Interval placement of left-sided chest tube, directed superior medially with side hole projecting over the posterior left 7th rib. 2. Significantly decreased left pleural effusion, with lung aeration now evident at the left lung base. Small pleural effusion remains. 3. Interval placement of left-sided central catheter terminating in the proximal SVC. 4. Stable mild patchy airspace opacities bilaterally, with relative sparing of the right upper lung zone.
--- NOTE | 2022-01-28 11:32 | EXP.SURG.CON ---
History of Present Illness *Admission Date: 01/27/22 *Reason for visit:: Pleural effusion (need for chest tube); need for deep line and art-line *History of present illness: This is a 67-year-old female seen in consultation from the hospitalist service for chest tube placement, deep on placement, and art line placement. Please see HPI forwarded from H&P below. Forwarded from H&P: Patient is a 67-year-old woman with past medical history of COPD, hypertension, type 2 diabetes, mild dementia, and recent diagnosis of pneumonia who came to the ER for shortness of breath. Patient reports she has been feeling very fatigued and short of breath for the last 2 days. 2 days ago she went to her primary care doctor and she was diagnosed with pneumonia and given a shot of Rocephin. She is continue to feel more short of breath and therefore came to the ER for further evaluation. Her reports that a few months ago she had a CT scan that showed some nodules. She was supposed to have some kind of work-up on these, however they were concerned about her undergoing anesthesia and elected not to have this procedure, perhaps a bronchoscopy. She stated that if the spots turned out to be cancer then she would elect not to have treatment. Her reports that she has an extensive smoking history. Additionally she has a history of an unusual pneumonia that were required a partial lung resection in the past. Patient denies any fever or chills over the last 2 days, she does report fatigue and shortness of breath. [facility] Medical History (Updated 01/28/22 @ 11:35 by Ramesh Santo MD) COPD (chronic obstructive pulmonary disease) Dementia Diarrhea Hyperlipidemia Hypertension Hypertension Partial nontraumatic amputation of right foot Surgical History H/O Spinal surgery History of hysterectomy History of lung biopsy Family History (Updated 01/28/22 @ 01:50 by Jessica Sanders RN) Family history of hypertension Family history of diabetes mellitus type II COPD (chronic obstructive pulmonary disease) Social History (Updated 01/28/22 @ 01:50 by Jessica Sanders, DANI) Smoking Status: Current every day smoker tobacco type: cigarettes packs per day: 1 alcohol intake: never substance use type: denies use current occupational status: unemployed Travel in the last 8 weeks: None Review of Systems Constitutional Constitutional: Denies headache(s) Eyes Eyes: Denies loss of vision ENT Ears, Nose, Mouth, and Throat: Denies dizziness and Denies headache(s) *Musculoskeletal Musculoskeletal: Reports abnormal gait and Denies tingling *Neurologic Neurologic: Reports abnormal gait, Denies abnormal speech, Reports confusion, Denies dizziness, Denies localized weakness, Denies headache(s), Denies loss of vision and Denies tingling Psychiatric Psychiatric: Reports confusion Meds Home Medications and Allergies Home Medications Medication Instructions Recorded Confirmed Type diltiazem HCl 300 mg 300 mg PO DAILY blood pressure 30 04/29/18 01/27/22 History capsule,extended release 24 hr days #30 caps metformin 500 mg tablet 1,000 mg PO BID Diabetes 30 days 04/29/18 01/28/22 History #60 tabs montelukast 10 mg tablet 10 mg PO PM Allergy symptoms 30 04/29/18 01/28/22 History days #30 tabs cholecalciferol (vitamin D3) 50 50 mcg PO DAILY Supplement 12/21/21 01/27/22 History mcg (2,000 unit) capsule glipizide 2.5 mg tablet, extended 2.5 mg PO DAILY Diabetes 12/21/21 01/27/22 History release 24 hr alprazolam 0.25 mg tablet 0.25 mg PO DAILY PRN anxiety #30 01/22/22 01/27/22 Rx tabs albuterol sulfate 90 mcg/actuation 1 inh inhalation QID PRN soa 01/27/22 01/27/22 History aerosol inhaler (ProAir HFA) aspirin 81 mg tablet,delayed 81 mg PO DAILY heart health 01/27/22 01/27/22 History release donepezil 10 mg tablet 10 mg PO HS memory 01/27/22 01/28/22 History estradiol 0.5 mg tab
--- NOTE | 2022-01-28 11:36 | EXP.OP.NOTE ---
Date of procedure: 01/28/22 Pre-op Diagnosis:: Left pleural effusion Respiratory failure Inadequate venous access Post-op Diagnosis:: Same Procedure performed:: 1) Left thoracostomy tube (28 Nigerian) 2) Central venous access (7 Nigerian) via left subclavian vein 3) Right radial art line Surgeon:: Ramesh Santo MD Anesthesia: other (Ongoing sedation status post urgent intubation) Estimated blood loss (mL): 10 Operative findings:: 28 Nigerian thoracostomy tube anchored at 14 cm 7 Nigerian triple-lumen catheter placed via left subclavian vein 20-gauge right radial art line Operative note:: After informed consent was obtained (via family) the patient was maintained in a supine position. Her left chest was prepped and draped in a sterile fashion. A small transverse incision was made below the fifth interspace. The subcutaneous tissue was bluntly dissected and the pleural space was entered over the rib margin. A 28 Nigerian chest tube was secured in position and anchored at 14 cm. The tube was secured with 0 silk suture. Sterile dressings were applied. The patient's left chest and neck were then prepped and draped in a sterile fashion. A large bore needle was used to access the left subclavian vein. Utilizing a modified Salinger technique a 7 Nigerian triple-lumen catheter was secured at 16 cm. All 3 ports flushed without difficulty. The white port did not aspirate. Sterile dressings were applied. The right wrist was then prepped and draped in a sterile fashion. A 20-gauge angio-catheter (from the radial arterial line kit ) was secured in position with interrupted silk suture. Dressings were applied. Condition: critical Disposition: no change Specimens:: None Complications:: No immediate. Chest x-ray is pending.
[2022-01-28 11:50] LABS: ABG Base Excess -0.6 mmol/L (-2.4-2.3); ABG HCO3 26.2 mmhg (22.0-26.0); ABG Oxygen Saturation 99 % (90-100); ABG PH 7.28 mmol/L (7.35-7.45); ABG PO2 134.2 mmhg (80-100); Allen's Test Patient Unable; Oxygen 80% %; PEEP 5; Source ALINE; Tidal Volume 400; Vent Rate 18
[2022-01-28 11:51] LABS: ABG PCO2 57.3 mmhg (35.0-45.0)
--- NOTE | 2022-01-28 13:18 | PC.NURSE ---
SPUTUM SAMPLE FROM POST INTUBATION TAKEN TO LAB.
--- NOTE | 2022-01-28 15:06 | PC.WOUNDNOTE ---
Stage II upper back, redness noted to coccyx
--- NOTE | 2022-01-28 18:10 | PC.NURSE ---
Patient intubated by Dr Ibarra at 0921 ty8
--- NOTE | 2022-01-28 18:10 | PC.NURSE ---
Patient intubated this am per Dr Ibarra at 0921, intubated with 7.5 ETT 22@lip, OG placed at 50 per this RN, Dr Santo to bedside this am who placed a chest tube on the left, L SC TLDL, and a right radial arterial line, patient was hypotensive this am but has been able to be weaned off of levophed, current pressure per art line 111/51, map 65, has remained NSR/ST per telemetry, sedated with propofol, RASS -3, 1420 noted drainage in pleuravac for left sided chest tube, patient has been turned q2h and provided oral care and suctioning, 16F FC draining clear yellow urine at bedside, pupils unequal left 3, right pinpoint, CT head and chest completed this shift, MD aware of results, bed in lowest position with call light in reach.
[2022-01-28 18:34] LABS: ABG Base Excess 5.2 mmol/L (-2.4-2.3); ABG HCO3 30.3 mmhg (22.0-26.0); ABG Oxygen Saturation 94 % (90-100); ABG PH 7.38 mmol/L (7.35-7.45); ABG PO2 67.2 mmhg (80-100)
[2022-01-28 18:36] LABS: Oxygen 50 %; PEEP 5; Source AL; Tidal Volume 400; Vent Rate 18
[2022-01-28 18:37] LABS: ABG PCO2 52.7 mmhg (35.0-45.0)
[2022-01-28 21:26] LABS: POC Glucose,Bedside 98 (70-110)
[2022-01-29] VITALS (39 sets, daily range): BP systolic 75–152; BP diastolic 32–60; PULSE 64–90; RESP 18–22; TEMP 36.3–37.6; O2SAT 99–100; BMI 20.7
--- NOTE | 2022-01-29 | XR_ITS ---
FINAL REPORT CLINICAL HISTORY: BRONCH-LEFT, left lung bx. Fluoro time 1.14 FINDINGS: FLUORO TIME PROCEDURE: Fluoroscopy in the operating room. FINDINGS: Fluoroscopy time was provided by the radiology department for the clinical service. 1 film was obtained for bronchoscopy. Fluoroscopy exposure time: 1 minute 14 seconds IMPRESSION: See operative report. Reviewed, Interpreted and Dictated by Jose Miguel Emmanuel III, MD Transcribed by Trinity Li Authenticated and [facility]
--- NOTE | 2022-01-29 04:52 | PC.NURSE ---
Vent settings: AC, FiO2 50%, TV 400, R 18, PEEP 5. Propofol infusing @ 55 mg/kg/min. Fentanyl @ 25 mcg/hr. Pt has remained off Levophed gtt this shift.Arterial line patent, Chest tube to pleur evac. 20 cm suction. DSG C/D/I. Central line in use. Pt turned and repositioned. Oral care administered. F/C draining to bedside with clear, yellow urine. Family at bedside. EKG obtained this AM due to change in rhythm. Reviewed by Nery Tinajero.
--- NOTE | 2022-01-29 06:00 | XR_ITS ---
PROCEDURE INFORMATION: Exam: XR Chest Exam date and time: 01/29/2022 5:47 AM Age: 67 years old Clinical indication: Shortness of breath and other: Post intubation follow up TECHNIQUE: Imaging protocol: Radiologic exam of the chest. Views: 1 view. COMPARISON: CT CHEST W CON 01/28/2022 12:33 PM FINDINGS: Tubes, catheters and devices: Endotracheal tube terminates approximately 3.4 cm above the felecia. NG tube passes into the stomach. Left subclavian central venous catheter terminates in the region of the SVC. Left chest tube is in place. Lungs: Improving patchy opacities in the lungs bilaterally. Pleural spaces: No discernible pneumothorax. No substantial pleural effusion. Heart/Mediastinum: Unremarkable. No cardiomegaly. Bones/joints: ACDF hardware in the cervical spine. IMPRESSION: 1. Improving patchy airspace opacities in the lungs bilaterally. 2. No discernible pneumothorax.
--- NOTE | 2022-01-29 06:31 | ECG_ITS ---
APPROVED REPORT Exam: Resting ECG HR:76 bpm ECG Measurements Heart Rate 76 AXES ME 110 P -70 QRSd 98 QRS 91 QT 453 T 130 QTc 483 Conclusion JUNCTIONAL RHYTHM BORDERLINE RIGHT AXIS DEVIATION [QRS AXIS > 90] LOW QRS VOLTAGE IN PRECORDIAL LEADS [QRS DEFLECTION < 1.0 mV IN CHEST LEADS] MODERATE T-WAVE ABNORMALITY, CONSIDER ANTERIOR ISCHEMIA [-0.1+ mV T-WAVE IN V3/V4] ABNORMAL ECG UNCONFIRMED REPORT Electronically signed by : Tang Chavira MD 01/29/2022 21:23:13
[2022-01-29 06:45] LABS: ABG Base Excess 5.9 mmol/L (-2.4-2.3); ABG HCO3 30.6 mmhg (22.0-26.0); ABG Oxygen Saturation 92 % (90-100); ABG PCO2 49.9 mmhg (35.0-45.0); ABG PH 7.41 mmol/L (7.35-7.45); ABG PO2 64.9 mmhg (80-100); ABG TCO2 32.2 mmhg (23-27)
[2022-01-29 06:46] LABS: Allen's Test Patient Unable; Oxygen 50% %; PEEP 5; Tidal Volume 400; Vent Rate 18
[2022-01-29 07:01] LABS: Basophils # 0.1 K/mm3 (0-0.2); Basophils % 0.3 % (0.1-2.0); Eosinophils % 0.2 % (0.1-12.0); Hematocrit 32.4 % (37.0-47.0); Hemoglobin 10.1 g/dL (12.2-16.2); Lymphocytes % 8.8 % (10-50); Mean Corpuscular HGB Conc 31.3 g/dL (31.8-35.4); Mean Corpuscular Hemoglobin 25.7 pg (27.0-31.2); Mean Platelet Volume 7.7 fl (7.4-10.4); Monocytes # 1.2 K/mm3 (0.1-1.0); Monocytes % 5.5 % (1.7-9.3); Neutrophils # 19.2 K/mm3 (1.8-7.8); Neutrophils % 85.3 % (37.0-80.0); Platelet Count 530 K/mm3 (142-424); Red Blood Count 3.96 M/mm3 (4.20-5.40); White Blood Count 22.6 K/mm3 (4.8-10.8)
[2022-01-29 07:02] LABS: MANUAL DIFFERENTIAL MANUAL DIFFERENTIAL (MANUAL DIFF)
[2022-01-29 07:09] LABS: Chloride 104 mmol/L (98-107); Potassium 4.5 mmoL/L (3.5-5.1); Sodium 140 mmol/L (136-145)
[2022-01-29 07:11] LABS: Blood Urea Nitrogen 46 mg/dl (7-17); Creatinine Clearance Estimated 49 mL/min (50-200); Estimated Glomerular Filt Rate 56 ml/min (>60); GFR (African American) 67 ML/MIN (>60)
[2022-01-29 07:12] LABS: Alanine Aminotransferase 14 U/L (12-78); Albumin Level 2.8 g/dl (3.5-5.0); Alkaline Phosphatase 78 U/L (38-126); Anion Gap 5.5 mEq/L (5-15); Aspartate Amino Transferase 34 U/L (14-36); Calcium 8.3 mg/dl (8.4-10.2); Carbon Dioxide 35 mmol/L (22.0-30.0); Globulin 2.9 g/dL (1.3-3.2); Glucose 86 mg/dl (74-100); Magnesium 2.4 mg/dl (1.6-2.3); Phosphorous 2.9 mg/dl (2.5-4.5); Total Protein,Serum 5.7 g/dl (6.3-8.2)
[2022-01-29 07:14] LABS: Bilirubin,Total < 0.1 mg/dl (0.2-1.3)
[2022-01-29 08:22] LABS: Hypochromasia 1+; Lymphocytes % 17 % (10-50); Macrocytosis 1+; Monocytes % 3 % (2-9); Neutrophils % 80 % (42-76); Platelet Estimate Slight Increase; Total Cells Counted 100
[2022-01-29 08:37] LABS: Troponin I 1.82 ng/ml (0.00-0.034)
--- NOTE | 2022-01-29 08:49 | PC.WOUNDNOTE ---
Assessment photo of pt coccyx, optifoam applied to pt coccyx following assessment
--- NOTE | 2022-01-29 08:55 | PC.NURSE ---
[address] Triplett face to face of critical troponin 1.82
--- NOTE | 2022-01-29 09:36 | EXP.PULM.CON ---
History of Present Illness History of present illness: Intubated and sedated for much of the history is obtained from chart review and patient's family. Ms. Harden is a 67-year-old significant smoking history carries a diagnosis COPD presented to hospital complaint worsening respiratory's along with cough and productive phlegm on admission found to be in septic shock initiated antibiotics, eventually needing ventilator support for hypercarbic respiratory failure and pulmonary was called for further management. [facility] Medical History (Updated 01/29/22 @ 11:17 by Noel Gonzalez MD) COPD (chronic obstructive pulmonary disease) Dementia Diarrhea Hyperlipidemia Hypertension Hypertension Lung mass Mediastinal lymphadenopathy Partial nontraumatic amputation of right foot Sepsis with acute hypercapnic respiratory failure and septic shock Surgical History H/O Spinal surgery History of hysterectomy History of lung biopsy Family History (Updated 01/28/22 @ 01:50 by Jessica Sanders RN) Other COPD (chronic obstructive pulmonary disease) Family history of diabetes mellitus type II Family history of hypertension Social History (Updated 01/28/22 @ 01:50 by Jessica Sanders RN) Smoking Status: Current every day smoker tobacco type: cigarettes packs per day: 1 alcohol intake: never substance use type: denies use current occupational status: unemployed Travel in the last 8 weeks: None Review of Systems Review of Systems Review of systems:: unable to obtain Review of systems (narrative): Intubated and sedated Pulmonology Exam Inpatient Vital signs and Labs for Last 24 Hours: Temp Pulse Resp BP Pulse Ox FiO2 97.4 F L 81 18 128/58 L 100 60 01/29/22 08:00 01/29/22 09:00 01/29/22 09:00 01/29/22 09:00 01/29/22 09:00 01/29/22 09:00 Laboratory Results - last 24 hr 01/28/22 11:40: Specimen Source [place], O2 % 80%, ABG pH 7.28 L, ABG pCO2 57.3 H, ABG pO2 134.2 H, ABG HCO3 26.2 H, ABG Total CO2 28.0 H, ABG O2 Saturation 99, ABG Base Excess -0.6, Gigi Test Patient unable, Vent Rate 18, Tidal Volume 400, PEEP 5 01/28/22 18:23: Specimen Source Al, O2 % 50, ABG pH 7.38, ABG pCO2 52.7 H, ABG pO2 67.2 L, ABG HCO3 30.3 H, ABG Total CO2 32.0 H, ABG O2 Saturation 94, ABG Base Excess 5.2 H, Vent Rate 18, Tidal Volume 400, PEEP 5 01/28/22 20:40: POC Glucose 98 01/29/22 05:59: WBC 22.6 H*, RBC 3.96 L, Hgb 10.1 L, Hct 32.4 L, MCV 82.0, MCH 25.7 L, MCHC 31.3 L, RDW 16.0, Plt Count 530 H, MPV 7.7, Neut % (Auto) 85.3 H, Lymph % (Auto) 8.8 L, [place] % (Auto) 5.5, Eos % (Auto) 0.2, Baso % (Auto) 0.3, Neut # (Auto) 19.2 H, Lymph # (Auto) 2.0, [place] # (Auto) 1.2 H, Eos # (Auto) 0.0, Baso # (Auto) 0.1, Total Counted 100, Neutrophils % (Manual) 80 H, Lymphocytes % (Manual) 17, Monocytes % (Manual) 3, Platelet Estimate Slight increase, Hypochromasia 1+, Macrocytosis 1+ 01/29/22 05:59: Sodium 140, Potassium 4.5 D, Chloride 104, Carbon Dioxide 35 H, Anion Gap 5.5, BUN 46 H, Creatinine 1.00, Estimated Creat Clear 49, Estimated GFR 56 L, Est GFR ( Amer) 67, Glucose 86, Calcium 8.3 L, Phosphorus 2.9 D, Magnesium 2.4 H, Total Bilirubin < 0.1 L, AST 34, ALT 14, Alkaline Phosphatase 78, Total Protein 5.7 L, Albumin 2.8 L D, Globulin 2.9, Albumin/Globulin Ratio 1.0 L 01/29/22 05:59: Troponin I 1.82 H 01/29/22 06:00: O2 % 50%, ABG pH 7.41, ABG pCO2 49.9 H, ABG pO2 64.9 L, ABG HCO3 30.6 H, ABG Total CO2 32.2 H, ABG O2 Saturation 92, ABG Base Excess 5.9 H, Gigi Test Patient unable, Vent Rate 18, Tidal Volume 400, PEEP 5 I & O for Labs for Last 24 Hours: Intake & Output 01/26/22 01/27/22 01/28/22 01/29/22 23:59 23:59 23:59 23:59 Intake Total 2102 / 2164 656 / 656 Output Total 3005 / 3025 385 / 385 Balance -903 / -861 271 / 271 Weight 121 lb 7 oz 121 lb 6.89 oz Microbiology Reports for the Last 24 Hours: Microbiology 01/27/22 15:21 Thoracic Fluid Gram Stain - Final
--- NOTE | 2022-01-29 10:30 | PC.NURSE ---
late entry: 1020 Dr Gonzalez on speakerphone with pt at this time. consent for bronchoscopy with biopsy received at this time by myself and Dr gonzalez
[2022-01-29 11:44] LABS: Vancomycin,Trough 7.7 ug/mL (5.0-10.0)
[2022-01-29 11:55] LABS: POC Glucose,Bedside 83 (70-110)
--- NOTE | 2022-01-29 12:25 | EXP.PHA.CONS ---
Pharmacy Consult Date: 01/29/22 Time: 12:26 Referring provider: DR. LLANES Reason for Consult:: VANCOMYCIN LEVEL AND DOSE CHANGE Allergies Allergy/AdvReac Type Severity Reaction Status Date / Time Cephalosporins Allergy Unknown Verified 01/28/22 10:05 codeine Allergy Unknown Verified 01/28/22 10:05 doxycycline Allergy Unknown Verified 01/28/22 10:05 benzalkonium chloride Allergy Verified 01/28/22 10:05 [From Travatan (with benzalkonium)] docosanol [From Abreva] Allergy Verified 01/28/22 10:05 fluticasone Allergy Verified 01/28/22 10:05 [From Advair Diskus] gabapentin Allergy Verified 01/28/22 10:05 ibuprofen Allergy Verified 01/28/22 10:05 Influenza Virus Vaccines Allergy Verified 01/28/22 10:05 Penicillins Allergy Verified 01/28/22 10:05 pneumococcal vaccine Allergy Verified 01/28/22 10:05 [From Pneumovax-23] salmeterol Allergy Verified 01/28/22 10:05 [From Advair Diskus] travoprost Allergy Verified 01/28/22 10:05 [From Travatan (with benzalkonium)] Home Medications Medication Instructions Recorded Confirmed Type diltiazem HCl 300 mg 300 mg PO DAILY blood pressure 30 04/29/18 01/27/22 History capsule,extended release 24 hr days #30 caps metformin 500 mg tablet 1,000 mg PO BID Diabetes 30 days 04/29/18 01/28/22 History #60 tabs montelukast 10 mg tablet 10 mg PO PM Allergy symptoms 30 04/29/18 01/28/22 History days #30 tabs cholecalciferol (vitamin D3) 50 50 mcg PO DAILY Supplement 12/21/21 01/27/22 History mcg (2,000 unit) capsule glipizide 2.5 mg tablet, extended 2.5 mg PO DAILY Diabetes 12/21/21 01/27/22 History release 24 hr alprazolam 0.25 mg tablet 0.25 mg PO DAILY PRN anxiety #30 01/22/22 01/27/22 Rx tabs albuterol sulfate 90 mcg/actuation 1 inh inhalation QID PRN soa 01/27/22 01/27/22 History aerosol inhaler (ProAir HFA) aspirin 81 mg tablet,delayed 81 mg PO DAILY heart health 01/27/22 01/27/22 History release donepezil 10 mg tablet 10 mg PO HS memory 01/27/22 01/28/22 History estradiol 0.5 mg tablet 0.5 mg PO DAILY hormone replacement 01/27/22 01/27/22 History ferrous sulfate 325 mg (65 mg 325 mg PO DAILY iron supplement 01/27/22 01/27/22 History iron) tablet (FeroSul) fluoxetine 40 mg capsule 40 mg PO DAILY Depression 01/27/22 01/27/22 History fluticasone fur. 200 mcg-umeclid 1 inh inhalation DAILY Nasal 01/27/22 01/27/22 History 62.5 mcg-vilant 25 mcg congestion inhalat.powder (Trelegy Ellipta) folic acid 1 mg tablet 1 mg PO DAILY Supplement 01/27/22 01/27/22 History magnesium oxide 400 mg (241.3 mg 400 mg PO BID Supplement 01/27/22 01/27/22 History magnesium) tablet memantine 5 mg tablet 5 mg PO BID memory 01/27/22 01/27/22 History ondansetron HCl 4 mg tablet 4 mg PO TIDP PRN Nausea 01/27/22 01/28/22 History potassium chloride 10 mEq 10 meq PO DAILY Supplement 01/27/22 01/27/22 History tablet,extended release prednisone 1 mg tablet 5 mg PO DAILY lung infection 01/27/22 01/27/22 History lisinopril 40 mg tablet 40 mg PO BID High blood pressure 01/28/22 01/28/22 History oxycodone-acetaminophen 7.5 mg-325 1 tab PO QIDP PRN Pain 01/28/22 01/28/22 History mg tablet New Prescriptions to Start Prescriptions: Height: 1.63 m Weight: 55 kg Laboratory Results:: Laboratory Results - last 24 hr 01/28/22 18:23: Specimen Source Al, O2 % 50, ABG pH 7.38, ABG pCO2 52.7 H, ABG pO2 67.2 L, ABG HCO3 30.3 H, ABG Total CO2 32.0 H, ABG O2 Saturation 94, ABG Base Excess 5.2 H, Vent Rate 18, Tidal Volume 400, PEEP 5 01/28/22 20:40: POC Glucose 98 01/29/22 05:59: WBC 22.6 H*, RBC 3.96 L, Hgb 10.1 L, Hct 32.4 L, MCV 82.0, MCH 25.7 L, MCHC 31.3 L, RDW 16.0, Plt Count 530 H, MPV 7.7, Neut % (Auto) 85.3 H, Lymph % (Auto) 8.8 L, [place] % (Auto) 5.5, Eos % (Auto) 0.2, Baso % (Auto) 0.3, Neut # (Auto) 19.2 H, Lymph # (Auto) 2.0, [place] # (Auto) 1.2 H, Eos # (Auto) 0.0, Baso # (Auto) 0.1, Total Counted 100, Neutrophils % (Manual) 80 H, Lympho
--- NOTE | 2022-01-29 14:42 | P.PN_ITS ---
[facility] Medical History COPD (chronic obstructive pulmonary disease) Dementia Diarrhea Hyperlipidemia Hypertension Hypertension Lung mass Mediastinal lymphadenopathy Partial nontraumatic amputation of right foot Sepsis with acute hypercapnic respiratory failure and septic shock Surgical History H/O Spinal surgery History of hysterectomy History of lung biopsy Family History Other COPD (chronic obstructive pulmonary disease) Family history of diabetes mellitus type II Family history of hypertension Social History Smoking Status: Current every day smoker tobacco type: cigarettes packs per day: 1 alcohol intake: never substance use type: denies use current occupational status: unemployed Travel in the last 8 weeks: None [facility] Anesthesia Checklist Patient Identification Patient Identification: Arm Band and Verbal (Name & ) Structural Data Admitted From: Home Planned Operative Procedure/s: Bronch Consent for Planned Operative Procedure(s) Verified: Yes NPO Status Verified Time NPO: 00:00 Airway Assessment C-Spine Mobility Assessed: Yes TMJ Mobility Assessed: Yes Dentition: Edentulous Neurological Assessment Level of Consciousness: Sedated Hx Seizures: No Numbness or tingling in extremities: No Anesthesia Plan Anesthesia Risk discussed: Yes Anesthesia Plan: Verified ASA Class: IV (IV E) Anesthesia Type: General
--- NOTE | 2022-01-29 14:53 | PC.NURSE ---
Addendum entered by Rafaela Bronson RN 01/29/22 16:12: pt returned to floor at 1856. assisted to settle pt in room. This RN resumed care of pt at this time. [employer]N remained at bedside until 1615. Original Note: 1428 pt transported to or for bronchoscopy by Brandee Arita RN, Markell Parada CRNA, Sailaja Hall RN, Caterina Blake RN.
--- NOTE | 2022-01-29 14:58 | DIET.NUTRFU ---
Spoke to nursing, do not anticipate taking her off vent soon. Prognosis is poor. Will need to review TF wishes with family, son and have conflicts wishes at this time. To best meet her nutritional needs recommend starting TF via NG tube. Pulmocare at 20ml/hr and increasing to 40ml/hr providing 1440kcal, 60gm protein and 750ml free water. Adjust flush based on IVF. She is also receiving propofol so far today received 209ml, at 18ml/hr, anticipate receiving 432ml or 475kcal. Yesterday received 207ml/day which provided 227.7kcal/day (1.1kcal/ml provided). Would also have to adjust goal rate if propofol is continues. patient is diabetic with metformin and glipizide in place, she is also receiving steroid tx which can cause increase BS, glucose has been fairly low at this time 98 (01/28) and 83 (01/29). Pulmocare would be providing 1.5kcal/ml and glucerna provides 1.0kcal/ml. Will continue to follow for nutritional needs
--- NOTE | 2022-01-29 15:24 | SUR.OPER ---
arterial line, central line, and drips maintained/monitored by anesthesia. see anesthesia record for details
--- NOTE | 2022-01-29 15:27 | SUR.OPER ---
Upon arrival to OR, chest tube is intact. Current output at 1527 is 1490.
--- NOTE | 2022-01-29 16:00 | P.PNANES_ITS ---
[facility] Anesthesia Record Part I Anesthesia Record I Intake, IV Amount: 100 Estimated blood loss (mL): 10 Urine output (mL): 0 Blood Pressure: 152/59 SaO2: 100 Pulse Rate: 88 Respiratory Rate: 22 Temperature: 98.8 F Patient is:: Ventilator Stable to PACU at:: 15:45
--- NOTE | 2022-01-29 16:05 | EXP.BRONCH.N ---
Procedure: Date: 01/29/22 Patient Date of :: 1955 Procedure Performed:: Bronchoscopy airway examination, bronchoalveolar lavagen endobronchial and transbronchial lung biopsy Indications:: Lung nodule, lymphadenopathy Performing Provider:: Noel Gonzalez MD Referring Provider:: Dr. Triplett Sedation:: General anesthesia Procedure:: Bronchoscopy airway examination, bronchoalveolar lavagen endobronchial and transbronchial lung biopsy: A clean DIAGNOSTIC bronchoscopy was advanced through the ET tube and airways were examined up to subsegmental bronchi. No evidence of mucoid secretions, mucous plugging active bleeding/old blood clots noted. Airways appeared grossly normal except for narrow to near closed left lingular bronchus. Also noted to have a small endobronchial non-pedunculated lesion at the takeoff of left upper lobe bronchus. Bronchoalveolar lavage was performed in the LEFT UPPER LOBE with instillation of 60 cc normal saline with return of 30 cc back. BAL fluid was sent for cell count and differential along with bacterial fungal and AFB stain and cultures and also cytopathology Transbronchial biopsy was performed in the LEFT UPPER LOBE with a total of 7 biopsies performed, 5 biopsy specimens were sent in formalin for cytopathologic examination. The other 2 biopsy samples, were sent one each in two separate normal saline specimen cups for bacterial fungal and AFB stain cultures. Special request was also made for the pathologist to evaluate for AFB and fungal organisms on the cytopathologic examination. Endobronchial biopsies were also performed for the endobronchial lesion noted to the left upper lobe bronchus takeoff. All endobronchial biopsy specimens were sent in formalin for cytopathologic examination. Patient tolerated the procedure with no acute complications. We will follow the patient in pulmonary clinic in 7 to 10 days. Findings:: Please see the procedure note Recommendations:: Please see the procedure note. Please see the progress note from this morning Complications:: No acute immediate complications Estimated blood obtained (mL): 10
--- NOTE | 2022-01-29 16:15 | PC.NURSE ---
pt received paralytic during bronchoscopy. pt reassessed upon return to unit.
--- NOTE | 2022-01-29 16:34 | SUR.PHASEI ---
LATE ENTRY 1545- pt returned to room 219 at this time. ICU nurse at bedside. Respiratory at bedside and hooked pt to mechanical ventilation upon arrival from the OR. Vent settings as following. See respiratory charting for further details. tidal- 400 rate- 18 peep- 5 fio2- 60 1605- ICU nurse titrated pt propofol drip to 55mcg and fentanyl drip of 37.5mcg. See ICU charting for more details. 1615- detailed report given to radha raphael in pt room. Pt in stable condition at this time.
[2022-01-29 16:41] LABS: POC Glucose,Bedside 143 (70-110)
--- NOTE | 2022-01-29 17:20 | EXP.PN ---
Subjective *Date: 01/29/22 *Time: 17:20 Interval history: Patient sedated and intubated this morning on rounds. She is overall comfortable appearing. I spoke with patient's son and regarding her condition and they are hopeful that at some point she can at least be weaned off sedation and/or extubated so they can talk with her 1 more time. They voiced understanding that her condition is critical and her prognosis appears to be likely less than 6 months based on current evidence we have. Exam Data for Last 24 hours Vital signs and Labs for Last 24 Hours: Temp Pulse Resp BP Pulse Ox FiO2 98.9 F 82 18 104/46 L 100 60 01/29/22 16:15 01/29/22 17:00 01/29/22 17:00 01/29/22 17:00 01/29/22 17:00 01/29/22 16:00 Laboratory Results - last 24 hr 01/28/22 18:23: Specimen Source Al, O2 % 50, ABG pH 7.38, ABG pCO2 52.7 H, ABG pO2 67.2 L, ABG HCO3 30.3 H, ABG Total CO2 32.0 H, ABG O2 Saturation 94, ABG Base Excess 5.2 H, Vent Rate 18, Tidal Volume 400, PEEP 5 01/28/22 20:40: POC Glucose 98 01/29/22 05:59: WBC 22.6 H*, RBC 3.96 L, Hgb 10.1 L, Hct 32.4 L, MCV 82.0, MCH 25.7 L, MCHC 31.3 L, RDW 16.0, Plt Count 530 H, MPV 7.7, Neut % (Auto) 85.3 H, Lymph % (Auto) 8.8 L, [place] % (Auto) 5.5, Eos % (Auto) 0.2, Baso % (Auto) 0.3, Neut # (Auto) 19.2 H, Lymph # (Auto) 2.0, [place] # (Auto) 1.2 H, Eos # (Auto) 0.0, Baso # (Auto) 0.1, Total Counted 100, Neutrophils % (Manual) 80 H, Lymphocytes % (Manual) 17, Monocytes % (Manual) 3, Platelet Estimate Slight increase, Hypochromasia 1+, Macrocytosis 1+ 01/29/22 05:59: Sodium 140, Potassium 4.5 D, Chloride 104, Carbon Dioxide 35 H, Anion Gap 5.5, BUN 46 H, Creatinine 1.00, Estimated Creat Clear 49, Estimated GFR 56 L, Est GFR ( Amer) 67, Glucose 86, Calcium 8.3 L, Phosphorus 2.9 D, Magnesium 2.4 H, Total Bilirubin < 0.1 L, AST 34, ALT 14, Alkaline Phosphatase 78, Total Protein 5.7 L, Albumin 2.8 L D, Globulin 2.9, Albumin/Globulin Ratio 1.0 L 01/29/22 05:59: Troponin I 1.82 H 01/29/22 06:00: O2 % 50%, ABG pH 7.41, ABG pCO2 49.9 H, ABG pO2 64.9 L, ABG HCO3 30.6 H, ABG Total CO2 32.2 H, ABG O2 Saturation 92, ABG Base Excess 5.9 H, Gigi Test Patient unable, Vent Rate 18, Tidal Volume 400, PEEP 5 01/29/22 10:52: Vancomycin Trough 7.7 01/29/22 11:47: POC Glucose 83 01/29/22 16:31: POC Glucose 143 H I & O for Last 24 hours: Intake & Output 01/26/22 01/27/22 01/28/22 01/29/22 23:59 23:59 23:59 23:59 Intake Total 2102 / 2164 1526.625 / 1526.625 Output Total 3005 / 3025 1440 / 1440 Balance -903 / -861 86.625 / 86.625 Weight 55.083 kg 55.08 kg 55 kg Microbiology Reports for the Last 24 Hours: Microbiology 01/27/22 15:21 Thoracic Fluid Gram Stain - Final 01/27/22 15:21 Thoracic Fluid Body Fluid Culture - Preliminary NO GROWTH AFTER 48 HOURS 01/27/22 11:05 Blood - Other Blood Culture - Preliminary NO GROWTH AFTER 48 HOURS 01/27/22 11:05 Blood - Other Blood Culture - Preliminary NO GROWTH AFTER 48 HOURS 01/28/22 13:12 Sputum - Endotracheal Tube Aspirate Gram Stain - Final Constitutional Constitutional: moderate distress and chronically ill appearing Comments: intubated and sedated *Routine HEENT Exam Head: Present normocephalic and atraumatic Eye: Absent PERRL (pinpoint bilaterally ) ENT: Present mucous membranes dry *Routine Neck Exam Neck: Present trachea midline; Absent carotid bruit, tenderness or swelling *Routine Respiratory Exam Respiratory: Present patient mechanically ventilated, decreased breath sounds, rhonchi and crackles Comments: very coarse breath sounds *Routine Cardiovascular Exam Cardiovascular: Present RRR, murmur and tachycardia *Routine Abdominal Exam Abdominal: Present soft and normoactive bowel sounds; Absent tenderness, distended, rebound or guarding *Routine Extremities Exam Extremities: Present amputation (some toes on right foot amputated by law
--- NOTE | 2022-01-29 17:38 | PC.NURSE ---
throughout the day the pt would open her eyes with little stimulation, or with suctioning. minimal coughing noted with suction as well. pt is easily redirected when awakened. (when grabbing for the ETT if told to put hands down, she will.) after arriving back on unit following procedure, pt bp has began to improve. upon arrival drips were as follows: propofol 80mcg fentanyl 50cmg. drips have since been returned to previous settings of prop [address] Gonzalez wants pt to remain under light sedation with the anticipation of performing SBT in the am. family has been at bedside throughout the day and has been updated on POC and why certain aspects are being performed (turning and oral care). pt chest tube placed back to suction following return to unit. pt art line zeroed as well. nad noted.
[2022-01-29 18:14] LABS: Vancomycin,Peak 17.6 ug/ml (11-39)
--- NOTE | 2022-01-29 21:24 | PC.NURSE ---
Addendum entered by Nicolasa Triana RN 01/29/22 21:54: notified OFELIA Tinajero that restarted levo drip Original Note: pt's bp 80/40's, restarted levo drip to keep pt's map greater than 65mmHg bp per art line is 106/45 (66) with levo at 6mcg/min
--- NOTE | 2022-01-29 21:50 | PC.NURSE ---
pt arterial bp 113/45 (70), decreased levo drip to 4mcg/min
--- NOTE | 2022-01-29 22:19 | PC.NURSE ---
arterial bp 110/45, decreased levo drip to 2mcg/min
--- NOTE | 2022-01-29 22:27 | PC.NURSE ---
arterial bp 97/41, increased levo drip to 3mcg/min
--- NOTE | 2022-01-29 23:02 | PC.NURSE ---
bp arterial 97/42 (61), increased levo drip to 4mcg/min
[2022-01-30] VITALS (36 sets, daily range): BP systolic 88–171; BP diastolic 42–73; PULSE 66–112; RESP 16–39; TEMP 36.7–37.6; O2SAT 94–100; BMI 18.6
--- NOTE | 2022-01-30 00:28 | PC.NURSE ---
arterial bp 125/50, decreased levo drip to 3mcg/min decreased propofol to 50mcg/kg/min (from 55mcg/kg/min)
--- NOTE | 2022-01-30 01:04 | PC.NURSE ---
arterial bp 114/47, decreased levo drip to 2mcg/min
--- NOTE | 2022-01-30 04:22 | PC.NURSE ---
arterial bp 132/49, held levo drip at this time
--- NOTE | 2022-01-30 04:27 | PC.NURSE ---
changed propofol tubing and bottle
--- NOTE | 2022-01-30 06:00 | XR_ITS ---
PROCEDURE INFORMATION: Exam: XR Chest Exam date and time: 01/30/2022 5:47 AM Age: 67 years old Clinical indication: Device placement; Ett placement (vent status); Additional info: Post intubation follow up TECHNIQUE: Imaging protocol: Radiologic exam of the chest. Views: 1 view. COMPARISON: CR XR CHEST PORTABLE 01/29/2022 5:47 AM FINDINGS: Tubes, catheters and devices: Endotracheal tube terminates approximately 5.3 cm above the felecia. NG tube terminates in the region of the gastric body. Left chest tube is in place. Left subclavian central venous catheter terminates in the region of the mid SVC. Lungs: Patchy airspace opacities in the mid and lower left lung. Pleural spaces: No substantial pleural effusion. No discernible pneumothorax. Heart/Mediastinum: Unremarkable. No cardiomegaly. Bones/joints: ACDF hardware in the cervical spine. IMPRESSION: 1. Patchy opacities in the mid and lower left lung. 2. No discernible pneumothorax. 3. Stable positioning of support apparatus.
[2022-01-30 06:26] LABS: ABG Base Excess 7.8 mmol/L (-2.4-2.3); ABG HCO3 32.2 mmhg (22.0-26.0); ABG Oxygen Saturation 91 % (90-100); ABG PH 7.43 mmol/L (7.35-7.45); ABG PO2 58.8 mmhg (80-100); ABG TCO2 33.7 mmhg (23-27)
[2022-01-30 06:29] LABS: Allen's Test Patient Unable; Oxygen 40% %; PEEP 5; Tidal Volume 400; Vent Rate 18
[2022-01-30 06:30] LABS: Source A-Line
[2022-01-30 06:32] LABS: ABG PCO2 50.1 mmhg (35.0-45.0)
[2022-01-30 06:32] LABS: Basophils # 0.1 K/mm3 (0-0.2); Basophils % 0.6 % (0.1-2.0); Eosinophils # 0.3 K/mm3 (0.0-0.4); Eosinophils % 1.7 % (0.1-12.0); Hematocrit 32.2 % (37.0-47.0); Hemoglobin 10.4 g/dL (12.2-16.2); Lymphocytes # 2.2 K/mm3 (0.7-4.5); Lymphocytes % 13.8 % (10-50); Mean Corpuscular HGB Conc 32.4 g/dL (31.8-35.4); Mean Corpuscular Hemoglobin 26.4 pg (27.0-31.2); Mean Corpuscular Volume 81.6 fl (81-99); Mean Platelet Volume 7.8 fl (7.4-10.4); Monocytes # 0.8 K/mm3 (0.1-1.0); Monocytes % 5.3 % (1.7-9.3); Neutrophils # 12.3 K/mm3 (1.8-7.8); Neutrophils % 78.6 % (37.0-80.0); Platelet Count 465 K/mm3 (142-424); Red Blood Count 3.95 M/mm3 (4.20-5.40); Red Cell Distribution Width 16.1 % (11.5-17.5); White Blood Count 15.6 K/mm3 (4.8-10.8)
[2022-01-30 06:35] LABS: Chloride 105 mmol/L (98-107)
[2022-01-30 06:36] LABS: Potassium 4.1 mmoL/L (3.5-5.1); Sodium 142 mmol/L (136-145)
--- NOTE | 2022-01-30 06:36 | PC.NURSE ---
RT Queen increasing FIO2 back to 50% due to pO2 58.8 on am ABG result
[2022-01-30 06:38] LABS: Alanine Aminotransferase 13 U/L (12-78); Aspartate Amino Transferase 34 U/L (14-36); Blood Urea Nitrogen 41 mg/dl (7-17); Creatinine Clearance Estimated 44 mL/min (50-200); Estimated Glomerular Filt Rate 72 ml/min (>60); GFR (African American) 87 ML/MIN (>60)
[2022-01-30 06:39] LABS: Albumin Level 2.8 g/dl (3.5-5.0); Alkaline Phosphatase 82 U/L (38-126); Anion Gap 7.1 mEq/L (5-15); Calcium 7.9 mg/dl (8.4-10.2); Carbon Dioxide 34 mmol/L (22.0-30.0); Globulin 2.9 g/dL (1.3-3.2); Glucose 76 mg/dl (74-100); Magnesium 2.2 mg/dl (1.6-2.3); Total Protein,Serum 5.7 g/dl (6.3-8.2)
--- NOTE | 2022-01-30 06:40 | PC.NURSE ---
fentanyl still at 37.5mcg/hr, propofol at 50mcg/kg/min, and NS at 50mL/hr; levo off arterial bp 11/42 (65)
[2022-01-30 06:43] LABS: Bilirubin,Total 0.1 mg/dl (0.2-1.3)
[2022-01-30 06:50] LABS: MANUAL DIFFERENTIAL MANUAL DIFFERENTIAL (MANUAL DIFF)
--- NOTE | 2022-01-30 06:55 | PC.NURSE ---
fentanyl still at 37.5mcg/hr, propofol at 50mcg/kg/min, and NS at 50mL/hr; levo off arterial bp 111/42 (65)
--- NOTE | 2022-01-30 07:24 | P.PN_ITS ---
Subjective Narrative: No significant issues with regard to chest tube per nursing Exam Data for Last 24 hours Vital signs and Labs for Last 24 Hours: Temp Pulse Resp BP Pulse Ox FiO2 99.6 F 76 18 120/59 L 100 50 01/30/22 04:00 01/30/22 06:54 01/30/22 06:54 01/30/22 06:54 01/30/22 06:54 01/30/22 06:54 Laboratory Results - last 24 hr 01/29/22 05:59: Total Counted 100, Neutrophils % (Manual) 80 H, Lymphocytes % (Manual) 17, Monocytes % (Manual) 3, Platelet Estimate Slight increase, Hypochromasia 1+, Macrocytosis 1+ 01/29/22 05:59: Troponin I 1.82 H 01/29/22 10:52: Vancomycin Trough 7.7 01/29/22 11:47: POC Glucose 83 01/29/22 16:31: POC Glucose 143 H 01/29/22 17:30: Vancomycin Peak 17.6 01/30/22 06:00: Specimen Source A-line, O2 % 40%, ABG pH 7.43, ABG pCO2 50.1 H, ABG pO2 58.8 L, ABG HCO3 32.2 H, ABG Total CO2 33.7 H, ABG O2 Saturation 91, ABG Base Excess 7.8 H, Gigi Test Patient unable, Vent Rate 18, Tidal Volume 400, PEEP 5 01/30/22 06:25: WBC 15.6 H D, RBC 3.95 L, Hgb 10.4 L, Hct 32.2 L, MCV 81.6, MCH 26.4 L, MCHC 32.4, RDW 16.1, Plt Count 465 H, MPV 7.8, Neut % (Auto) 78.6, Lymph % (Auto) 13.8, [place] % (Auto) 5.3, Eos % (Auto) 1.7, Baso % (Auto) 0.6, Neut # (Auto) 12.3 H, Lymph # (Auto) 2.2, [place] # (Auto) 0.8, Eos # (Auto) 0.3, Baso # (Auto) 0.1 01/30/22 06:25: Sodium 142, Potassium 4.1, Chloride 105, Carbon Dioxide 34 H, Anion Gap 7.1, BUN 41 H, Creatinine 0.80, Estimated Creat Clear 44, Estimated GFR 72, Est GFR ( Amer) 87 D, Glucose 76, Calcium 7.9 L, Magnesium 2.2, Total Bilirubin 0.1 L, AST 34, ALT 13, Alkaline Phosphatase 82, Total Protein 5.7 L, Albumin 2.8 L, Globulin 2.9, Albumin/Globulin Ratio 1.0 L I & O for Last 24 hours: Intake & Output 01/27/22 01/28/22 01/29/22 01/30/22 11:59 11:59 11:59 11:59 Intake Total 522 / 522 2482.625 / 2482.625 1546 / 1546 Output Total 3500 / 3500 2215 / 2215 Balance 522 / 522 -1017.375 / -1017.375 -669 / -669 Weight 145 lb 121 lb 6.89 oz 121 lb 4.068 oz 109 lb 8 oz Microbiology Reports for the Last 24 Hours: Microbiology 01/29/22 15:00 Bronchial Washings - Left Upper Lobe Gram Stain - Final 01/27/22 15:21 Thoracic Fluid Gram Stain - Final 01/27/22 15:21 Thoracic Fluid Body Fluid Culture - Preliminary NO GROWTH AFTER 48 HOURS 01/27/22 11:05 Blood - Other Blood Culture - Preliminary NO GROWTH AFTER 48 HOURS 01/27/22 11:05 Blood - Other Blood Culture - Preliminary NO GROWTH AFTER 48 HOURS Constitutional Comments: Essentially unchanged *Routine Respiratory Exam Comments: Chest tube without obvious leak on Pleur-evac Progress Note: A&P Assessment and plan (1) Sepsis due to pneumonia: Status: Acute (2) Pleural effusion, left: Status: Acute Assessment and plan: Continue chest tube for now (3) Elevated troponin: Status: Acute (4) DM type 2 (diabetes mellitus, type 2): Status: Acute (5) Severe sepsis: Status: Acute (6) Mild dementia: Status: Acute (7) COPD (chronic obstructive pulmonary disease): Status: Acute
[2022-01-30 07:39] LABS: Eosinophils % 1 % (0-3); Lymphocytes % 19 % (10-50); Monocytes % 10 % (2-9); Neutrophils % 70 % (42-76); Total Cells Counted 100
[2022-01-30 07:40] LABS: Anisocytosis 1+; Hypochromasia 1+; Ovalocytes 1+; Platelet Estimate Slight Increase; Target Cells 1+
--- NOTE | 2022-01-30 09:40 | EXP.PULM.PN ---
Subjective *Date: 01/30/22 *Time: 15:28 Interval history: Extubated to BiPAP. Still appeared lethargic. Not responding appropriately verbal commands. Pulmonology Exam Inpatient Vital signs and Labs for Last 24 Hours: Temp Pulse Resp BP Pulse Ox FiO2 99.0 F 91 H 20 129/51 L 100 50 01/30/22 08:00 01/30/22 08:00 01/30/22 08:00 01/30/22 08:00 01/30/22 08:00 01/30/22 08:00 Laboratory Results - last 24 hr 01/29/22 10:52: Vancomycin Trough 7.7 01/29/22 11:47: POC Glucose 83 01/29/22 16:31: POC Glucose 143 H 01/29/22 17:30: Vancomycin Peak 17.6 01/30/22 06:00: Specimen Source A-line, O2 % 40%, ABG pH 7.43, ABG pCO2 50.1 H, ABG pO2 58.8 L, ABG HCO3 32.2 H, ABG Total CO2 33.7 H, ABG O2 Saturation 91, ABG Base Excess 7.8 H, Gigi Test Patient unable, Vent Rate 18, Tidal Volume 400, PEEP 5 01/30/22 06:25: WBC 15.6 H D, RBC 3.95 L, Hgb 10.4 L, Hct 32.2 L, MCV 81.6, MCH 26.4 L, MCHC 32.4, RDW 16.1, Plt Count 465 H, MPV 7.8, Neut % (Auto) 78.6, Lymph % (Auto) 13.8, [place] % (Auto) 5.3, Eos % (Auto) 1.7, Baso % (Auto) 0.6, Neut # (Auto) 12.3 H, Lymph # (Auto) 2.2, [place] # (Auto) 0.8, Eos # (Auto) 0.3, Baso # (Auto) 0.1, Total Counted 100, Neutrophils % (Manual) 70, Lymphocytes % (Manual) 19, Monocytes % (Manual) 10 H, Eosinophils % (Manual) 1, Platelet Estimate Slight increase, Hypochromasia 1+, Anisocytosis 1+, Target Cells 1+, Ovalocytes 1+ 01/30/22 06:25: Sodium 142, Potassium 4.1, Chloride 105, Carbon Dioxide 34 H, Anion Gap 7.1, BUN 41 H, Creatinine 0.80, Estimated Creat Clear 44, Estimated GFR 72, Est GFR ( Amer) 87 D, Glucose 76, Calcium 7.9 L, Magnesium 2.2, Total Bilirubin 0.1 L, AST 34, ALT 13, Alkaline Phosphatase 82, Total Protein 5.7 L, Albumin 2.8 L, Globulin 2.9, Albumin/Globulin Ratio 1.0 L I & O for Labs for Last 24 Hours: Intake & Output 01/27/22 01/28/22 01/29/22 01/30/22 23:59 23:59 23:59 23:59 Intake Total 2102 / 2164 1758.625 / 1758.625 744.542 / 744.542 Output Total 3005 / 3025 2130 / 2200 655 / 655 Balance -903 / -861 -371.375 / -441.375 89.542 / 89.542 Weight 121 lb 7 oz 121 lb 6.89 oz 121 lb 4.068 oz 109 lb 8 oz Microbiology Reports for the Last 24 Hours: Microbiology 01/29/22 15:00 Bronchial Washings - Left Upper Lobe Gram Stain - Final 01/27/22 15:21 Thoracic Fluid Gram Stain - Final 01/27/22 15:21 Thoracic Fluid Body Fluid Culture - Preliminary NO GROWTH AFTER 48 HOURS 01/27/22 11:05 Blood - Other Blood Culture - Preliminary NO GROWTH AFTER 48 HOURS 01/27/22 11:05 Blood - Other Blood Culture - Preliminary NO GROWTH AFTER 48 HOURS Head: Present normocephalic and atraumatic ENT: Present normal exam, normal oropharynx and mucous membranes moist Neck: Present normal inspection Respiratory: Present respiratory distress, rhonchi, wheezes and crackles Cardiac: Present Tachycardia and radial pulses present; Absent S1/S2 GI: Present soft and distention; Absent tenderness or guarding Rectal (female): Present deferred (female): Present deferred Skin: Present intact; Absent cyanosis or jaundice Neuro: Present awake; Absent alert or oriented x 3 Extremities: Present normal inspection; Absent clubbing or cyanosis Assessment and Plan *Assessment and plan (1) PNA (pneumonia): Status: Acute Qualifiers: Laterality: bilateral Lung location: lower lobe of lung Pneumonia type: due to unspecified organism Qualified Code(s): J18.9 - Pneumonia, unspecified organism Category: Medical Code(s): J18.9 - Pneumonia, unspecified organism (2) Pleural effusion: Status: Acute Category: Medical Code(s): J90 - Pleural effusion, not elsewhere classified (3) Pleural effusion, left: Status: Acute Category: Medical Code(s): J90 - Pleural effusion, not elsewhere classified (4) Lung mass: Status: Acute Category: Medical Code(
--- NOTE | 2022-01-30 10:16 | DIET.NUTRFU ---
RD rounded with provider today, patient is more alert today, she was able to wave at in room. Possible extubation today. Once extubated [employer] will eval for oral diet. Will continue to follow
--- NOTE | 2022-01-30 10:23 | EXP.ANES.II ---
[facility] Anesthesia Record Part II Anesthesia Record Part II Discharge Time: 16:15 Destination: Medical Surgical Department PACU nurse assessment reviewed?: Yes Patient Condition:: Fair Anesthesia Complications:: None Swallowing reflex intact?: Yes Cyanosis?: No Blood Pressure: 88/42 Pulse Rate: 87 Temperature: 98.9 F Mental Status: Lethargic (sedated) Pain level:: 0 Nausea and/or vomitting:: None Intake, IV Amount: 0
[2022-01-30 12:11] LABS: ABG Base Excess 5.6 mmol/L (-2.4-2.3); ABG HCO3 30.7 mmhg (22.0-26.0); ABG Oxygen Saturation 89 % (90-100); ABG PH 7.38 mmol/L (7.35-7.45); ABG PO2 56.4 mmhg (80-100); ABG TCO2 32.3 mmhg (23-27)
[2022-01-30 12:12] LABS: ABG PCO2 52.8 mmhg (35.0-45.0); Oxygen 40 %; PEEP 5; Pressure Support 5; Source A LINE
--- NOTE | 2022-01-30 12:37 | PC.NURSE ---
pt extubated to CPAP 50% rate 16 28/11.
[2022-01-30 12:38] LABS: Albumin, Body Fluid 2.3 g/dL (Not Estab.); Glucose, Body Fluid 91 mg/dL (.); LD, Body Fluid 2954 IU/L (.); Protein, Body Fluid 4.2 g/dL (.)
[2022-01-30 17:09] LABS: POC Glucose,Bedside 124 (70-110)
--- NOTE | 2022-01-30 17:19 | EXP.ACUTE.PN ---
Subjective *Date: 01/30/22 *Time: 18:42 Interval history: Patient extubated this morning by pulmonology on rounds. Transitioned to BiPAP. He continues to have shortness of breath. Family at bedside consisting of daughter and . Extensive discussion today about patient's current status and clinical findings. Expressed concern for findings consistent with metastatic cancer of unknown primary, malignant effusion, acute on chronic respiratory failure, and patient's expressed desire (per ) to not pursue work-up or treatment for cancer. Further history obtained from family, patient has lost significant weight over the past 6 months. Has had concern for lesions on her lungs for the past year. Has previously opted not to pursue any work-up as she did not want to know if she had cancer per her . Continues to smoke heavily. Wears 2 to 3 L of oxygen continuously (or at least is supposed to per family's report). Will take it off to go smoke. On evaluation is tachycardic, tachypneic, in mild distress. Asking for something to drink. Tolerating BiPAP with FiO2 of 90%, saturating in the mid to high 90s. Medical Exam Vital signs and Labs for Last 24 Hours: Temp Pulse Resp BP Pulse Ox FiO2 98.6 F 91 H 26 H 138/60 94 L 90 01/30/22 16:00 01/30/22 17:00 01/30/22 17:00 01/30/22 17:00 01/30/22 17:00 01/30/22 17:00 Laboratory Results - last 24 hr 01/27/22 15:21: Fluid Glucose 91, Fluid Total Protein 4.2, Fluid Albumin 2.3, Fluid LDH 2954 01/29/22 17:30: Vancomycin Peak 17.6 01/30/22 06:00: Specimen Source A-line, O2 % 40%, ABG pH 7.43, ABG pCO2 50.1 H, ABG pO2 58.8 L, ABG HCO3 32.2 H, ABG Total CO2 33.7 H, ABG O2 Saturation 91, ABG Base Excess 7.8 H, Gigi Test Patient unable, Vent Rate 18, Tidal Volume 400, PEEP 5 01/30/22 06:25: WBC 15.6 H D, RBC 3.95 L, Hgb 10.4 L, Hct 32.2 L, MCV 81.6, MCH 26.4 L, MCHC 32.4, RDW 16.1, Plt Count 465 H, MPV 7.8, Neut % (Auto) 78.6, Lymph % (Auto) 13.8, [place] % (Auto) 5.3, Eos % (Auto) 1.7, Baso % (Auto) 0.6, Neut # (Auto) 12.3 H, Lymph # (Auto) 2.2, [place] # (Auto) 0.8, Eos # (Auto) 0.3, Baso # (Auto) 0.1, Total Counted 100, Neutrophils % (Manual) 70, Lymphocytes % (Manual) 19, Monocytes % (Manual) 10 H, Eosinophils % (Manual) 1, Platelet Estimate Slight increase, Hypochromasia 1+, Anisocytosis 1+, Target Cells 1+, Ovalocytes 1+ 01/30/22 06:25: Sodium 142, Potassium 4.1, Chloride 105, Carbon Dioxide 34 H, Anion Gap 7.1, BUN 41 H, Creatinine 0.80, Estimated Creat Clear 44, Estimated GFR 72, Est GFR ( Amer) 87 D, Glucose 76, Calcium 7.9 L, Magnesium 2.2, Total Bilirubin 0.1 L, AST 34, ALT 13, Alkaline Phosphatase 82, Total Protein 5.7 L, Albumin 2.8 L, Globulin 2.9, Albumin/Globulin Ratio 1.0 L 01/30/22 12:00: Specimen Source A line, O2 % 40, ABG pH 7.38, ABG pCO2 52.8 H, ABG pO2 56.4 L, ABG HCO3 30.7 H, ABG Total CO2 32.3 H, ABG O2 Saturation 89 L, ABG Base Excess 5.6 H, PEEP 5 01/30/22 16:57: POC Glucose 124 H I & O for Labs for Last 24 Hours: Intake & Output 01/27/22 01/28/22 01/29/22 01/30/22 23:59 23:59 23:59 23:59 Intake Total 2102 / 2164 1758.625 / 6465.533 2475.542 / 1425.542 Output Total 3005 / 3025 2130 / 2200 1850 / 1850 Balance -903 / -861 -371.375 / -441.375 -424.458 / -424.458 Weight 55.083 kg 55.08 kg 55 kg 49.668 kg Microbiology Reports for the Last 24 Hours: Microbiology 01/27/22 15:21 Thoracic Fluid Gram Stain - Final 01/27/22 15:21 Thoracic Fluid Body Fluid Culture - Preliminary NO GROWTH AFTER 72 HOURS 01/29/22 15:00 Bronchial Washings - Left Upper Lobe Gram Stain - Final Head: Present atraumatic and normocephalic ENT: Present normal exam Comment:: BiPAP in place; moderate distress Neck: Present normal inspection Respiratory: Present accessory muscle use, respiratory distress, rhonchi, wheezes and crackles Cardiac: Present Tachycardia GI: Present soft; Absent distention or tenderness Rectal (female): Absent deferred
--- NOTE | 2022-01-30 18:20 | PC.NURSE ---
shift summary: Pt was extubated around 1230pm today. Has been on Bipap since. FiO2 is currently @ 90%. Does not tolerate weaning of FiO2 due to O2 sat decreasing to the 70s. Left chest tube with no output today. Barnes catheter present. Adequate UOP due to Lasix x 2. No BM today. Stage II noted to coccyx. Has been turned Q2hr ATC. Oral care provided Q2hr ATC. MIVF, Fentanyl gtt, and Propofol gtt discontinued today. Pt has required one dose of prn Fentanyl 12.5mcg IV. Has been NSR on tele. Right radial art line present. Has been normotensive. Not required pressors this shift. NGT discontinued when pt extubated. NPO continues @ this time. GCS 15. Family has been @ BS for entire shift.
[2022-01-30 20:32] LABS: POC Glucose,Bedside 116 (70-110)
[2022-01-31] VITALS (15 sets, daily range): BP systolic 108–125; BP diastolic 46–64; PULSE 85–96; RESP 16–29; TEMP 38.7–39.4; O2SAT 96–98; BMI 18.6
--- NOTE | 2022-01-31 05:14 | PC.NURSE ---
Pt resting in bed. Family at bedside. Pt will respond at times. Pupils are unequal. (L) 4 mm. (R) 2 mm. Bilateral feet are mottled. Pt has been febrile this shift. Medicated per jun. Arterial line and central line remain patent. Pt given morphine for pain. Chest tube to waterseal. DSG C/D/I. F/C draining to bedside. No BM this SHift.
--- NOTE | 2022-01-31 06:00 | XR_ITS ---
PROCEDURE INFORMATION: Exam: XR Chest Exam date and time: 01/31/2022 5:33 AM Age: 67 years old Clinical indication: Screening exam; Other screening; Patient HX: Recently extubated 01/30/22; Additional info: Post intubation follow up TECHNIQUE: Imaging protocol: Radiologic exam of the chest. Views: 1 view. COMPARISON: CR XR CHEST PORTABLE 01/30/2022 5:47 AM FINDINGS: Tubes, catheters and devices: There has been interval extubation. There is a left chest tube in place. There is a left central venous catheter in place with the distal tip in the superior vena cava. Lungs: There is a large left perihilar region of consolidation unchanged. Pleural spaces: There is a small left pleural effusion. Heart/Mediastinum: The heart is enlarged but unchanged. Bones/joints: There is limited assessment of a cervical fusion. IMPRESSION: 1. Interval extubation. 2. Stable left perihilar pulmonary infiltrate. 3. Left chest tube in place without pneumothorax.
[2022-01-31 06:13] LABS: POC Glucose,Bedside 92 (70-110)
[2022-01-31 06:13] LABS: POC Glucose,Bedside 106 (70-110)
[2022-01-31 06:13] LABS: POC Glucose,Bedside 85 (70-110)
[2022-01-31 07:08] LABS: Chloride 104 mmol/L (98-107); Sodium 148 mmol/L (136-145)
[2022-01-31 07:09] LABS: Potassium 5.2 mmoL/L (3.5-5.1)
[2022-01-31 07:10] LABS: Blood Urea Nitrogen 58 mg/dl (7-17); Creatinine Clearance Estimated 37 mL/min (50-200); Estimated Glomerular Filt Rate 45 ml/min (>60); GFR (African American) 55 ML/MIN (>60)
[2022-01-31 07:11] LABS: POC Glucose,Bedside 105 (70-110)
[2022-01-31 07:11] LABS: Alanine Aminotransferase 15 U/L (12-78); Albumin Level 3.3 g/dl (3.5-5.0); Alkaline Phosphatase 99 U/L (38-126); Anion Gap 11.2 mEq/L (5-15); Aspartate Amino Transferase 27 U/L (14-36); Calcium 8.2 mg/dl (8.4-10.2); Carbon Dioxide 38 mmol/L (22.0-30.0); Globulin 3.2 g/dL (1.3-3.2); Glucose 105 mg/dl (74-100); Total Protein,Serum 6.5 g/dl (6.3-8.2)
[2022-01-31 07:14] LABS: Basophils # 0.1 K/mm3 (0-0.2); Basophils % 0.4 % (0.1-2.0); Eosinophils % 0.1 % (0.1-12.0); Hematocrit 36.9 % (37.0-47.0); Lymphocytes # 0.8 K/mm3 (0.7-4.5); Lymphocytes % 3.2 % (10-50); Mean Corpuscular HGB Conc 29.7 g/dL (31.8-35.4); Mean Corpuscular Hemoglobin 24.6 pg (27.0-31.2); Mean Corpuscular Volume 82.8 fl (81-99); Mean Platelet Volume 7.8 fl (7.4-10.4); Monocytes # 1.2 K/mm3 (0.1-1.0); Monocytes % 4.9 % (1.7-9.3); Neutrophils % 91.3 % (37.0-80.0); Platelet Count 484 K/mm3 (142-424); Red Blood Count 4.45 M/mm3 (4.20-5.40); Red Cell Distribution Width 15.9 % (11.5-17.5); White Blood Count 25.1 K/mm3 (4.8-10.8)
[2022-01-31 07:21] LABS: MANUAL DIFFERENTIAL MANUAL DIFFERENTIAL (MANUAL DIFF)
[2022-01-31 07:43] LABS: Bilirubin,Total < 0.1 mg/dl (0.2-1.3)
[2022-01-31 08:04] LABS: ABG Base Excess 2.4 mmol/L (-2.4-2.3); ABG HCO3 28.9 mmhg (22.0-26.0); ABG Oxygen Saturation 99 % (90-100); ABG PH 7.29 mmol/L (7.35-7.45); ABG PO2 123.8 mmhg (80-100); ABG TCO2 30.8 mmhg (23-27)
[2022-01-31 08:12] LABS: Oxygen 80 %; PEEP BIPAP 16/10
[2022-01-31 08:13] LABS: ABG PCO2 61.3 mmhg (35.0-45.0); Source ALINE; Vent Rate 16
[2022-01-31 08:23] LABS: Lymphocytes % 3 % (10-50); Monocytes % 5 % (2-9); Neutrophils % 92 % (42-76); Total Cells Counted 100
[2022-01-31 08:24] LABS: Platelet Estimate Slight Increase; RBC Morphology Normal
--- NOTE | 2022-01-31 09:35 | EXP.PULM.PN ---
Subjective *Date: 01/31/22 *Time: 11:45 Interval history: No acute respiratory events overnight. Patient continued to remain altered needing noninvasive ventilator therapy. Pulmonology Exam Inpatient Vital signs and Labs for Last 24 Hours: Temp Pulse Resp BP Pulse Ox FiO2 103.0 F H 88 26 H 114/64 98 90 01/31/22 06:00 01/31/22 06:48 01/31/22 06:48 01/31/22 06:48 01/31/22 06:48 01/31/22 06:48 Laboratory Results - last 24 hr 01/27/22 15:21: Fluid Glucose 91, Fluid Total Protein 4.2, Fluid Albumin 2.3, Fluid LDH 2954 01/29/22 21:23: POC Glucose 92 01/30/22 06:22: POC Glucose 85 01/30/22 11:53: POC Glucose 106 01/30/22 12:00: Specimen Source A line, O2 % 40, ABG pH 7.38, ABG pCO2 52.8 H, ABG pO2 56.4 L, ABG HCO3 30.7 H, ABG Total CO2 32.3 H, ABG O2 Saturation 89 L, ABG Base Excess 5.6 H, PEEP 5 01/30/22 16:57: POC Glucose 124 H 01/30/22 20:25: POC Glucose 116 H 01/31/22 06:00: Specimen Source [place], O2 % 80, ABG pH 7.29 L, ABG pCO2 61.3 H, ABG pO2 123.8 H, ABG HCO3 28.9 H, ABG Total CO2 30.8 H, ABG O2 Saturation 99, ABG Base Excess 2.4 H, Gigi Test N/a, Vent Rate 16, PEEP Bipap 28/0101/31/22 06:32: POC Glucose 105 01/31/22 06:46: WBC 25.1 H* D, RBC 4.45, Hgb 11.0 L, Hct 36.9 L, MCV 82.8, MCH 24.6 L, MCHC 29.7 L, RDW 15.9, Plt Count 484 H, MPV 7.8, Neut % (Auto) 91.3 H, Lymph % (Auto) 3.2 L, [place] % (Auto) 4.9, Eos % (Auto) 0.1, Baso % (Auto) 0.4, Neut # (Auto) 23.0 H, Lymph # (Auto) 0.8, [place] # (Auto) 1.2 H, Eos # (Auto) 0.0, Baso # (Auto) 0.1, Total Counted 100, Neutrophils % (Manual) 92 H, Lymphocytes % (Manual) 3 L, Monocytes % (Manual) 5, Platelet Estimate Slight increase, RBC Morphology Normal 01/31/22 06:46: Sodium 148 H, Potassium 5.2 H D, Chloride 104, Carbon Dioxide 38 H, Anion Gap 11.2, BUN 58 H D, Creatinine 1.20 H D, Estimated Creat Clear 37, Estimated GFR 45 L, Est GFR ( Amer) 55 L D, Glucose 105 H, Calcium 8.2 L, Total Bilirubin < 0.1 L, AST 27, ALT 15, Alkaline Phosphatase 99, Total Protein 6.5, Albumin 3.3 L D, Globulin 3.2, Albumin/Globulin Ratio 1.0 L I & O for Labs for Last 24 Hours: Intake & Output 01/28/22 01/29/22 01/30/22 01/31/22 23:59 23:59 23:59 23:59 Intake Total 2102 / 2164 1758.625 / 1726.453 6520.542 / 1425.542 Output Total 3005 / 3025 2130 / 2200 2335 / 2365 215 / 215 Balance -903 / -861 -371.375 / -441.375 -909.458 / -939.458 -215 / -215 Weight 121 lb 6.89 oz 121 lb 4.068 oz 109 lb 8 oz 109 lb 7.987 oz Microbiology Reports for the Last 24 Hours: Microbiology 01/29/22 15:00 Transbronchial Biopsy - Left Upper Lobe Surgical Biopsy Culture - Preliminary NO GROWTH AFTER 24 HOURS 01/27/22 15:21 Thoracic Fluid Gram Stain - Final 01/27/22 15:21 Thoracic Fluid Body Fluid Culture - Preliminary NO GROWTH AFTER 72 HOURS Head: Present normocephalic and atraumatic ENT: Present normal exam, normal oropharynx and mucous membranes moist Neck: Present normal inspection Respiratory: Present respiratory distress, rhonchi, wheezes and crackles Cardiac: Present Tachycardia and radial pulses present; Absent S1/S2 GI: Present soft and distention; Absent tenderness or guarding Rectal (female): Present deferred (female): Present deferred Skin: Present intact; Absent cyanosis or jaundice Neuro: Absent alert, awake or oriented x 3 Extremities: Present normal inspection; Absent clubbing or cyanosis Assessment and Plan *Assessment and plan (1) PNA (pneumonia): Status: Acute Qualifiers: Laterality: bilateral Lung location: lower lobe of lung Pneumonia type: due to unspecified organism Qualified Code(s): J18.9 - Pneumonia, unspecified organism Category: Medical Code(s): J18.9 - Pneumonia, unspecified organism (2) Pleural effusion: Status: Acute Category: Medical Code(s): J90 - Pleural effusion, not elsewhere classified (3) Pleural effusion, left: Status: Acute Category
--- NOTE | 2022-01-31 11:00 | DIET.NUTRFU ---
Family has decided to change patients care to more of comfort care, provider plans to change her medications around. Patient also continues NPO but provider did indicate if she requests food we can send it up, try to address her wishes at best we can.
--- NOTE | 2022-01-31 11:31 | SW/DCPLANNER ---
Addendum entered by Jacinta Cody 02/01/22 10:49: Sailaja Guillen is here to evaluate this patient. Updated information will be faxed. Addendum entered by Jacinta Cody 01/31/22 13:56: Per Diane Guillen this patient was admitted Hospice inpatient on 01/31/2022 12:43PM. Original Note: Family is agreeable to speak with Hospice services at this time. MD did have lengthy discussion with patient's family regarding end of life care. Patient information has been faxed to Diane patel/ Marsha Guillen: Hospice nurse will be here this AM to speak with patient's family. I will follow up with family once Hospice evaluates.
--- NOTE | 2022-01-31 11:36 | PC.NURSE ---
Patient transitioned to comfort measures only at this time per family request, awaiting hospice consult, removed from bipap and placed on 6LNC per Dr Mckeon order, family at bedside, called dietary to request courtesy cart.
--- NOTE | 2022-01-31 12:45 | PC.NURSE ---
Hospice at bedside speaking with family and assessing patient for inpatient admission.
--- NOTE | 2022-01-31 17:06 | PC.NURSE ---
Patient transitioned to hospice care this shift, given comfort meds per emar, patient has been turned and provided oral care q2h, no vitals per family request, family remains at bedside, patient on 6LNC per family request.
--- NOTE | 2022-01-31 17:41 | EXP.ACUTE.PN ---
Subjective *Date: 01/31/22 *Time: 19:13 Interval history: Patient showed change in clinical status. More septic overnight. Developed fever, tachycardia, continues to require significant respiratory support with 60% oxygen on BiPAP. Goals of care discussion with family at bedside today, family would like to proceed with comfort measures. Patient's clinical change concerning for actively dying. Asking for water, family would like to be able to give her water and talk with her. Would like to have the mask removed. Reviewed labs this morning, showed concern for worsening clinical status with ROD and increasing white count in light of broad-spectrum antibiotics Medical Exam Vital signs and Labs for Last 24 Hours: Vital Signs Temp Pulse Pulse Resp BP Pulse Ox FiO2 01/31/22 08:00 90 01/31/22 09:51 50 01/31/22 09:43 60 01/31/22 09:43 94 H 01/31/22 09:43 94 H 01/31/22 06:00 85 01/31/22 06:48 88 26 H 114/64 98 90 01/31/22 06:00 103.0 F H 89 23 113/47 L 98 90 01/31/22 06:11 80 01/31/22 06:09 89 01/31/22 06:09 90 01/31/22 04:00 98 90 01/31/22 05:00 102.3 F H 89 23 111/49 L 98 90 01/31/22 04:00 89 21 108/49 L 98 90 01/31/22 03:00 93 H 29 H 123/54 L 97 90 01/31/22 00:00 90 01/30/22 20:00 90 01/31/22 00:00 96 90 01/31/22 02:00 102.6 F H 91 H 28 H 125/53 L 97 90 01/31/22 01:00 92 H 24 117/46 L 96 90 01/31/22 00:00 101.7 F H 90 25 H 115/46 L 96 90 01/30/22 23:00 90 23 121/49 L 98 90 01/31/22 02:28 96 H 01/31/22 02:27 95 H 01/30/22 23:12 80 01/30/22 23:12 90 01/30/22 23:12 90 01/30/22 20:00 90 01/30/22 22:00 89 23 115/47 L 97 90 01/30/22 21:00 91 H 28 H 131/59 L 100 90 01/30/22 20:00 99.4 F 90 28 H 137/59 L 97 90 01/30/22 19:00 91 H 29 H 142/58 H 96 90 01/30/22 19:33 90 01/30/22 19:31 110 H 01/30/22 19:30 112 H 01/30/22 18:00 91 H 27 H 135/57 L 94 L 90 Intake and Output 01/31/22 01/31/22 01/31/22 07:59 15:59 23:59 Output Total 215 / 835 0 / 835 620 / 835 Balance -215 / -835 0 / -835 -620 / -835 Output: Output, Urine Amount 0 / 0 Output, Urine Amount (Catheter) 215 / 835 620 / 835 Barnes 215 / 835 620 / 835 Other: Number of Unmeasured Voids 0 0 Weight 49.668 kg Patient Weight 01/31/22 23:59 Weight 49.668 kg Laboratory Results - last 24 hr 01/29/22 21:23: POC Glucose 92 01/30/22 06:22: POC Glucose 85 01/30/22 11:53: POC Glucose 106 01/30/22 20:25: POC Glucose 116 H 01/31/22 06:00: Specimen Source [place], O2 % 80, ABG pH 7.29 L, ABG pCO2 61.3 H, ABG pO2 123.8 H, ABG HCO3 28.9 H, ABG Total CO2 30.8 H, ABG O2 Saturation 99, ABG Base Excess 2.4 H, Gigi Test N/a, Vent Rate 16, PEEP Bipap 28/0101/31/22 06:32: POC Glucose 105 01/31/22 06:46: WBC 25.1 H* D, RBC 4.45, Hgb 11.0 L, Hct 36.9 L, MCV 82.8, MCH 24.6 L, MCHC 29.7 L, RDW 15.9, Plt Count 484 H, MPV 7.8, Neut % (Auto) 91.3 H, Lymph % (Auto) 3.2 L, [place] % (Auto) 4.9, Eos % (Auto) 0.1, Baso % (Auto) 0.4, Neut # (Auto) 23.0 H, Lymph # (Auto) 0.8, [place] # (Auto) 1.2 H, Eos # (Auto) 0.0, Baso # (Auto) 0.1, Total Counted 100, Neutrophils % (Manual) 92 H, Lymphocytes % (Manual) 3 L, Monocytes % (Manual) 5, Platelet Estimate Slight increase, RBC Morphology Normal 01/31/22 06:46: Sodium 148 H, Potassium 5.2 H D, Chloride 104, Carbon Dioxide 38 H, Anion Gap 11.2, BUN 58 H D, Creatinine 1.20 H D, Estimated Creat Clear 37, Estimated GFR 45 L, Est GFR ( Amer) 55 L D, Glucose 105 H, Calcium 8.2 L, Total Bilirubin < 0.1 L, AST 27, ALT 15, Alkaline Phosphatase 99, Total Protein 6.5, Albumin 3.3 L D, Globulin 3.2, Albumin/Globulin Ratio 1.0 L I & O for Labs for Last 24 Hours: Intake & Output 01/28/22 01/29/22 01/30/22 01/31/22 23:59 23:59 23:59 23:59 Intake Total 2102 / 2164 1758.6
--- NOTE | 2022-01-31 17:41 | EXP.EVENT.NO ---
Advance care planning note: Active diagnosis: Sepsis, metastatic malignancy of unknown primary, unintentional weight loss, acute on chronic hypoxemic and hypercarbic respiratory failure The patient's active diagnoses are of sufficient risk that focused discussion on advanced care planning is indicated in order to allow the patient and family to thoughtfully consider personal goals of care; and, if situations arise that prevent the ability to personally give input, to ensure appropriate representation of their personal desires through documentation or informed surrogate decision makers. Persons present and participating in discussion: Patient, , daughter Discussion: Multiple discussions today about her goals of care. Patient surrogate decision makers are her and daughter. Discussed the grave prognosis with her metastatic cancer that she previously did not want to identify her work-up after concern expressed a year ago. Discussed CODE STATUS and whether or not to escalate care in regard to worsening sepsis or transition to comfort measures. Family consistently expressed their wish to keep the patient comfortable. They did not want to pursue aggressive life-saving measures if she were to decompensate and go into cardiac arrest. They were very clear on desire to not put her back on the ventilator given concern by care team that she likely would not come off the ventilator and remain on life support until need to withdraw. Discussed concern for metastatic cancer given lesions in her lungs and liver identified on imaging. Given her current condition, there are no viable treatments for that aspect of her disease process. Time spent: Multiple discussions through the course of the day. Total time spent [id number] in education and discussion directly related to advance care planninminutes
--- NOTE | 2022-01-31 20:21 | PC.NURSE ---
Family stated that they told Hospice the wrong home for when pt passes. They would like [facility] in [place].
--- NOTE | 2022-01-31 20:38 | PC.NURSE ---
Pt declined tylenol and FSBS for pt this evening. Pt is on comfort care.
[2022-02-01 04:00] VITALS: PULSE 127; RESP 30; O2SAT 83
--- NOTE | 2022-02-01 05:04 | PC.NURSE ---
Pt comfort care. Family remains at bedside. Has been restless at times. Medicated per mar. VS are declining. SHe remains on 6L O2 NC. Pt turned and repositioned and VS obtained as family permits.
[2022-02-01 08:00] VITALS: RESP 26; O2SAT 83
[2022-02-01 08:48] VITALS: TEMP 39.6
--- NOTE | 2022-02-01 08:49 | PC.NURSE ---
At the family's request pt was not turned. Rn aware of elevated temp.
--- NOTE | 2022-02-01 13:13 | EXP.PULM.PN ---
Subjective *Date: 02/01/22 *Time: 13:13 Interval history: Patient appeared comfortable lying in bed with family at bedside Pulmonology Exam Inpatient Vital signs and Labs for Last 24 Hours: Temp Pulse Resp BP Pulse Ox FiO2 103.2 F H 127 H 26 H 114/64 83 L 6 02/01/22 08:48 02/01/22 04:00 02/01/22 08:00 01/31/22 06:48 02/01/22 08:00 02/01/22 04:00 I & O for Labs for Last 24 Hours: Intake & Output 01/29/22 01/30/22 01/31/22 02/01/22 23:59 23:59 23:59 23:59 Intake Total 1758.625 / 1760.676 7742.542 / 1425.542 Output Total 2130 / 2200 2335 / 2365 1060 / 1060 200 / 200 Balance -371.375 / -441.375 -909.458 / -939.458 -1060 / -1060 -200 / -200 Weight 121 lb 4.068 oz 109 lb 8 oz 109 lb 7.987 oz Microbiology Reports for the Last 24 Hours: Microbiology 01/28/22 13:12 Sputum - Endotracheal Tube Aspirate Gram Stain - Final 01/28/22 13:12 Sputum - Endotracheal Tube Aspirate Sputum Culture - Final Normal Respiratory Jackie 01/29/22 11:55 Nose - Nasal MRSA Culture - Final Negative 01/27/22 11:05 Blood - Other Blood Culture - Final NO GROWTH AFTER 5 DAYS 01/27/22 11:05 Blood - Other Blood Culture - Final NO GROWTH AFTER 5 DAYS 01/29/22 15:00 Transbronchial Biopsy - Left Upper Lobe Gram Stain - Final 01/29/22 15:00 Transbronchial Biopsy - Left Upper Lobe Surgical Biopsy Culture - Preliminary NO GROWTH AFTER 48 HOURS 01/27/22 15:21 Thoracic Fluid Gram Stain - Final 01/27/22 15:21 Thoracic Fluid Body Fluid Culture - Preliminary NO GROWTH AFTER 4 DAYS Assessment and Plan *Assessment and plan (1) Neuroendocrine carcinoma: Status: Acute Category: Medical Code(s): C7A.8 - Other malignant neuroendocrine tumors Plan Patient currently under inpatient hospice care. No physical examination was performed. 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 I have informed the results to the patient and the family at bedside. Given patient currently under inpatient hospice care, pulmonary will sign off at this point of time. Please call with any further questions or concerns.
--- NOTE | 2022-02-01 13:56 | EXP.ACUTE.PN ---
Subjective *Date: 02/01/22 *Time: 13:56 Interval history: Patient resting peacefully on exam. Family states that she becomes agitated about every 2 to 2-1/2 hours. Responds well to current medication however. Oxygen saturations lower this morning in the mid 80s on rounds. Breathing labored. No meaningful response to exam. Febrile. Medical Exam Vital signs and Labs for Last 24 Hours: Vital Signs Temp Pulse Resp Pulse Ox FiO2 02/01/22 08:00 26 H 83 L 02/01/22 08:48 103.2 F H 02/01/22 04:00 127 H 30 H 83 L 6 Intake and Output 01/31/22 02/01/22 02/01/22 23:59 07:59 15:59 Output Total 845 / 1060 200 / 200 Balance -845 / -1060 -200 / -200 Output: Output, Urine Amount 0 / 0 200 / 200 Output, Urine Amount (Catheter) 845 / 1060 Barnes 845 / 1060 Other: Number of Unmeasured Voids 0 0 0 I & O for Labs for Last 24 Hours: Intake & Output 01/29/22 01/30/22 01/31/22 02/01/22 23:59 23:59 23:59 23:59 Intake Total 1758.625 / 2279.632 5418.542 / 1425.542 Output Total 2130 / 2200 2335 / 2365 1060 / 1060 200 / 200 Balance -371.375 / -441.375 -909.458 / -939.458 -1060 / -1060 -200 / -200 Weight 55 kg 49.668 kg 49.668 kg Microbiology Reports for the Last 24 Hours: Microbiology 01/28/22 13:12 Sputum - Endotracheal Tube Aspirate Gram Stain - Final 01/28/22 13:12 Sputum - Endotracheal Tube Aspirate Sputum Culture - Final Normal Respiratory Jackie 01/29/22 11:55 Nose - Nasal MRSA Culture - Final Negative 01/27/22 11:05 Blood - Other Blood Culture - Final NO GROWTH AFTER 5 DAYS 01/27/22 11:05 Blood - Other Blood Culture - Final NO GROWTH AFTER 5 DAYS 01/29/22 15:00 Transbronchial Biopsy - Left Upper Lobe Gram Stain - Final 01/29/22 15:00 Transbronchial Biopsy - Left Upper Lobe Surgical Biopsy Culture - Preliminary NO GROWTH AFTER 48 HOURS 01/27/22 15:21 Thoracic Fluid Gram Stain - Final 01/27/22 15:21 Thoracic Fluid Body Fluid Culture - Preliminary NO GROWTH AFTER 4 DAYS Constitutional: Present moderate distress and somnolent Respiratory: Present accessory muscle use, rhonchi, wheezes and crackles Cardiac: Present Tachycardia GI: Present soft; Absent distention Neuro: Absent alert or awake Assessment and Plan *Assessment and plan (1) Neuroendocrine carcinoma: Status: Acute Category: Medical Code(s): C7A.8 - Other malignant neuroendocrine tumors (2) Metastatic malignant neoplasm of unknown primary site: Status: Acute Category: Medical Code(s): C79.9 - Secondary malignant neoplasm of unspecified site; C80.1 - Malignant (primary) neoplasm, unspecified (3) Sepsis with acute hypercapnic respiratory failure and septic shock: Status: Acute Category: Medical Code(s): A41.9 - Sepsis, unspecified organism; R65.21 - Severe sepsis with septic shock; J96.02 - Acute respiratory failure with hypercapnia Plan Pathology returned on BAL, consistent with poorly differentiated neuroendocrine carcinoma. Patient admitted to hospice yesterday. Currently on comfort measures. Responding well to current therapy. Family's concerns addressed on rounds today. No change in plan. Patient actively dying, is imminent. DNR
--- NOTE | 2022-02-01 20:31 | PC.NURSE ---
ELLEN Amaya attempted to get vital signs, pt's family refused
--- NOTE | 2022-02-01 23:44 | PC.NURSE ---
time of 233, OFELIA Alamo pronounced, family at bedside, family reported to this RN would like to use [facility] in [place], [place]
--- NOTE | 2022-02-02 00:02 | PC.NURSE ---
[address] Family voiced no needs at this time
--- NOTE | 2022-02-02 00:06 | PC.NURSE ---
notified [facility] of pt's cardiac time of , pt ruled out by Mary Goldstein, reference number [id number]
--- NOTE | 2022-02-02 00:17 | EXP.DEATH.NO ---
Pronouncement Note Date and Time of Date of : 02/01/22 Time of : 23:34 PCOD Preliminary cause of : Respiratory failure with hypoxia and hypercapnia Contributing Factors (1) Neuroendocrine carcinoma: (2) Metastatic malignant neoplasm of unknown primary site: (3) Sepsis with acute hypercapnic respiratory failure and septic shock: (4) Neuroendocrine carcinoma: (5) Sepsis: Summary Additional details: Ms. Chyna Harden was a 67-year-old female with history of Chronic Tobacco use who presented to the facility due to hypoxia. The patient's initial presentation was concerning for Acute Hypoxic and Hypercapnic Respiratory Failure and Sepsis. While at the facility the patient required ICU level of care, intubation and underwent a BAL and was followed by Pulmonary. 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 Despite aggressive treatment measures aimed at Sepsis, the patient did not improve. The family elected hospice and comfort care. The patient had family at bedside at time of . Additional Data Confirmation of : no pulse Family: at bedside Additional persons at bedside: network technical analyst Attending/PCP notified?: No Attending physician: Girish Cardoso MD Was code activated?: No Autopsy requested?: No land title examiner notified?: Yes Organ bank notified?: Yes Advance directives: No
--- NOTE | 2022-02-02 00:27 | P.DN_ITS ---
Discharge Sum: Prov Provider Primary care physician: Kevin Samson MD Visit Care Team Role Provider Type Kevin Samson MD Primary Care Provider Staff Physician Ramesh Santo MD Other Providers Staff Physician Noel Gonzalez MD Other Providers Staff Physician Helena Mccabe DO Emergency Provider ER Physician Stephon Triplett MD Admit Provider Physician Attending Provider Admitting clinician: Girish Cardoso Attending physician on admission: Girish Cardoso Consults: 01/27/22 16:55 Consult to Case Management [CONS] Routine Reason For Consult: discharge planning 01/28/22 08:22 Consult to General Surgery [CONS] Stat Consulting Provider: Ramesh Santo Reason For Consult: left pleural effusion 01/29/22 08:07 Consult to Pulmonology [CONS] Stat Consulting Provider: Noel Gonzalez Reason For Consult: respiratory failure, intubated, pleural effusion with chest tube in place, PNA, possible lung ca 01/31/22 10:06 Consult to Hospice [CONS] Routine Comment: metastatic disease, comfort measures Consulting Provider: Pronouncing clinician: Olvin Alamo Discharge Sum: Diag PCOD Cause of : Respiratory failure with hypoxia and hypercapnia Contributing Factors (1) Neuroendocrine carcinoma: (2) Metastatic malignant neoplasm of unknown primary site: (3) Sepsis with acute hypercapnic respiratory failure and septic shock: (4) Neuroendocrine carcinoma: (5) Sepsis: Discharge Sum: Summary Date and Time Date of admission: 01/27/22 18:54 Date of : 02/01/22 Time of : 23:34 Hospital Course prior to Hospital Course Information: Ms. Harden was a 67-year-old female who presented to the facility secondary to hypoxia. Initial impression was acute hypoxic and hypercapnic respiratory failure and Sepsis. The patient was treated aggressively and seen by Pulmonary and underwent BAL. 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 Despite aggressive measures the patient continued to decline. Family elected for Hospice. Family was present at time of . Summary Details: The patient was a DNR/DNI, family elected for Hospice, comfort measures only. Patient was comfortable, family was there at time of patient's . Additional Data Confirmation of as documented by pronouncing clinician: no pulse Family: at bedside Additional persons at bedside: er nurse Attending/PCP notified?: No Attending physician: Stephon Triplett MD Was code activated?: No Autopsy requested?: No financial compliance examiner notified?: Yes Organ bank notified?: Yes Advance directives: No Hospice patient?: Yes
--- NOTE | 2022-02-02 01:37 | PC.NURSE ---
released body to [facility]
== END 2022-02-02 01:40 | disposition expired | DRG 853 ==
LOC: ER 12:23 → 2ND 16:56
PROVIDERS: Internal Medicine Pulmonary Disease; Nurse Practitioner Acute Care; Admitting Provider Emergency Medicine; Emergency Provider Emergency Medicine; PCP Family Medicine; Visit Provider Emergency Medicine
PROC: 0BBG8ZX Excision of Left Upper Lung Lobe, Via Natural or Artificial Opening Endoscopic, Diagnostic (ICD-10-PCS; principal; 2022-01-29 14:30)
DX: A41.9 Sepsis, unspecified organism (principal); J18.9 Pneumonia, unspecified organism; R65.21 Severe sepsis with septic shock; J96.22 Acute and chronic respiratory failure with hypercapnia; J96.21 Acute and chronic respiratory failure with hypoxia; J44.0 Chronic obstructive pulmonary disease with (acute) lower respiratory infection; J90 Pleural effusion, not elsewhere classified; N17.9 Acute kidney failure, unspecified; C7A.8 Other malignant neuroendocrine tumors; Z66 Do not resuscitate; Z51.5 Encounter for palliative care; E78.5 Hyperlipidemia, unspecified; F17.210 Nicotine dependence, cigarettes, uncomplicated; E11.9 Type 2 diabetes mellitus without complications; F03.90 Unspecified dementia, unspecified severity, without behavioral disturbance, psychotic disturbance, mood disturbance, and anxiety; Z99.81 Dependence on supplemental oxygen
CPT/HCPCS: 31500; 94002; 31628; 36415; 51702; 70450; 71045; 71046; 71260; 76000; 80051; 80053; 80202; 80305; 81001; 82042; 82803; 82945; 82962; 83036; 83605; 83615; 83735; 83880; 83986; 84100; 84155; 84484; 85007; 85025; 87040; 87070; 87081; 87102; 87116; 87186; 87205; 87206; 88112; 88305; 88342; 89051; 93005; 94003; 94640; 94660; 94761; 99291; C1751; C9803; J1956; J2185; J2704; J3370; J3475; Q9967; U0003; U0005